=== PATIENT | male | born 1935 | race Caucasian/White ===

== ENCOUNTER 2017-11-13 14:25 | Inpatient (IN) ==
[2017-11-13 18:18] LABS: Basophils % 0.5 %; Eosinophils # 0.2 K/mcL (0.0-0.6); Eosinophils % 2.3 %; Hematocrit 39.7 % (37.5-50.1); Hemoglobin 13.2 g/dL (12.9-16.9); Immature Granulocytes % 0.4 % (0-4); Lymphocytes # 1.4 K/mcL (0.6-4.6); Lymphocytes % 17.5 %; Mean Corpuscular HGB Conc 33.2 g/dL (31.6-35.5); Mean Corpuscular Hemoglobin 28.8 pg (28.0-33.3); Mean Corpuscular Volume 86.7 fL (83.0-100.0); Mean Platelet Volume 11.1 fL (9.4-12.4); Monocytes # 1.1 K/mcL (0.0-1.3); Monocytes % 14.3 %; Neutrophils # 5.1 K/mcL (1.6-8.9); Platelet Count 169 K/mcL (140-400); Red Blood Count 4.58 M/mcL (4.19-5.50); Red Cell Distribution Width 14.3 % (11.5-14.5)
[2017-11-13 18:37] LABS: Alanine Aminotransferase 9 Units/L (7-52); Albumin 3.4 g/dL (3.5-5.7); Albumin/Globulin Ratio 1.4 (1.1-2.2); Alkaline Phosphatase 38 Units/L (34-104); Aspartate Amino Transferase 15 Units/L (13-39); BUN/Creatinine Ratio 18 (6-26); Bilirubin,Total 0.6 mg/dL (0.3-1.0); Blood Urea Nitrogen 17 mg/dL (8-23); Calcium 8.9 mg/dL (8.6-10.3); Carbon Dioxide 21 mEq/L (23-29); Chloride 109 mEq/L (98-107); Globulin 2.5 g/dL (2.4-3.5); Glucose 85 mg/dL (70-105); Osmolality,Calculated 295 (280-300); Potassium 3.6 mEq/L (3.5-5.1); Sodium 142 mEq/L (136-145); Total Protein 5.9 g/dL (6.4-8.9); eGFR For African Americans > 60 (> 60); eGFR For Non-African Americans > 60 (> 60)
[2017-11-13] MEDS: Heparin 25,000 UNIT/500 ML D5W 25,000 UNIT/500 ML BAG IVC SCH (19:00)
[2017-11-13] MEDS ORDERED: Naloxone 0.4 MG/ML INJ IVP PRN (20:07)
--- NOTE | 2017-11-13 21:02 | Internal Med History&Physical ---
<BennyguerorobertPascual kramer - Last Filed: 11/13/17 22:26> Date of Encounter: 11/13/17 Time of Encounter: 18:00 Internal Medicine - H&P: HPI Chief complaint: SOB/Dyspnea Admitted From: Intrahospital Transfer Plans for Post Hospital Care: Home History of present illness: Mr. Oconnell is a 82 year old male w/PMH of arthritis, atrial fibrillation on Coumadin, CAD, diabetes, hx of GI bleed, HLD, HTN, TIA, GERD, and hx of triple bypass presents from the ED w/CC of SOB and dyspnea for the past 2-3 days which has progressively worsened. SOB with exertion. Also reports productive cough with yellow sputum but denies nasal congestion, chest congestion. Patient states he had 3 episodes of nausea and vomiting yesterday. Reports home O2 use at 2 L. Patient denies recent illness, fever, chills, headache, changes in vision, unusual bleeding, chest pain, edema, orthopnea, abdominal pain, diarrhea , constipation, dizziness, lightheadedness, numbness, tingling, pre-syncope, or syncope. Past Med Surg Social Fam HX - Past Medical History Source: patient Medical history: arthritis, atrial fibrillation, coronary artery disease, diabetes, GI bleed, hyperlipidemia, TIA, other Additional medical history: home oxygen Psychiatric history: no psych history - Past Surgical History Surgical History: coronary bypass (CABG) (Triple), other Additional surgical history: 3 way bypass. stomach sx - Social History Smoking Status: Former smoker Packs per day: 1 PPD - Reports quitting in 1969 Smokeless Tobacco Status: No Alcohol use: none Drug use: none Current living situation: Home, With Family Activity Level: Uses cane/walker Recent Out of Country Travel Within the Last 8 Weeks: No Exposure or Possible Exposure to Illness During Travel: No - Family History Mother Race: Family Member Ethnicity: Non- Living Status: Age at : 90 Cause of : Old age Hx Family Neurologic Disorders: Yes (Alzheimer's disease) Father Adopted: No Race: Family Member Ethnicity: Non- Living Status: Age at : 62 Cause of : Cerebral hemorrhage Hx Family Cardiac Disorders: Yes (CVA) Sister Race: Family Member Ethnicity: Non- Living Status: Still Living Hx Family Cardiac Disorders: Yes (CAD) Hx Family GI Disorders: Yes (Crohn's disease) Hx Family Endocrine Disorder: Yes (DM) Internal Medicine - H&P: Meds Candesartan Cilexetil [Atacand] 32 mg PO DAILY 03/03/15 [History] Metoclopramide [Reglan] 5 mg PO BID 03/03/15 [History] Metoprolol [Lopressor] 100 mg PO BID 03/03/15 [History] Pantoprazole Sodium 40 mg PO BID 03/03/15 [History] Amlodipine [Norvasc] 10 mg PO DAILY #30 tablet 03/06/15 [Rx] Lactobacillus [Culturelle] 1 each PO BID #10 cap.sprink 04/15/15 [Rx] Warfarin [Coumadin] 3 mg PO 1800 11/13/17 [History] 3 Allergy/AdvReac Type Severity Reaction Status Date / Time No Known Allergies Allergy Verified 03/03/15 15:41 All Systems PM: A 10-system review of systems was performed and is negative for pertinent findings except as documented above in the HPI. - Constitutional Constitutional: no chills, no fever(s), no night sweats - EENT Eyes: no change in vision, no discharge, no pain, no photophobia Ears: no ear discharge, no ear pain, no tinnitus Nose, mouth and throat: no dysphagia, no nasal discharge, no neck pain, no sore throat - Breasts Breasts: as per HPI - Cardiovascular Cardiovascular ROS IM: dyspnea, dyspnea on exertion, irregular heart rhythm, no chest pain, no diaphoresis, no lightheadedness, no palpitations, no syncope - Respiratory Respiratory: as per HPI, cough, dyspnea, dyspnea on exertion, change in phlegm color (Yellow), no wheezing, no excessive phlegm production - Gastrointestinal Gastrointestinal: as per HPI, nausea, vomiting, no abdominal pain, no diarrhea, no hematemesis, no hematochezia, no melena - Genitourinary Genitourinary ROS male: as per HPI, difficulty urinating, urinary hesitancy - Musculoskeletal Musculoskeletal ROS IM: no numbness, no tingling - Integumentary Integumentary IM: no rash, no unusual bruising - Neurological Neurological ROS: no confusion, no convulsions, no focal weakness, no numbness, no tingling, no tremor(s) - Psychiatric Psychiatric: as per HPI - Endocrine Endocrine IM: as per HPI - Hematologic/Lymphatic Hematologic/Lymphatic: no easy bruising - Allergic/Immunologic Allergic/Immunologic: as per HPI - Constitutional Vitals: Temp Pulse Resp BP Pulse Ox 98.3 F 88 18 136/88 99 11/13/17 19:45 11/13/17 19:45 11/13/17 19:45 11/13/17 19:45 11/13/17 19:45 General appearance: Present: cooperative, A&O X 3, pleasant, no acute distress, answers questions appropriately - Head Head exam: Present: atraumatic, normocephalic - Eye Eye exam: Present: PERRL, conjuntiva pink, sclera anicteric Pupils: Present: PERRL - ENT ENT exam: Present: normal exam - Neck Neck exam general surgery: Present: normal inspection, supple, trachea midline. Absent: lymphadenopathy - Respiratory Respiratory exam: Present: CTAB. Absent: accessory muscle use, rales, rhonchi, wheezes - Cardiovascular Cardiovascular exam: Present: irregular rhythm - GI/Abdominal GI/Abdominal exam: Present: normal bowel sounds, soft, no peritoneal signs. Absent: distended, tenderness - Rectal Rectal exam: Present: deferred - Additional comments: exam deferred. - Extremities Exam Extremities exam: Present: warm, radial pulses palpable and symmetrical. Absent : calf tenderness, cyanotic, pedal edema - Back Exam Back exam: Present: normal inspection - Neurological Exam Neurological exam: Present: alert, CN II-XII intact, oriented X3, no focal deficits. Absent: pronater drift, facial droop, speech deficit - Psychiatric Psychiatric exam: Present: normal affect, normal mood - Skin Skin exam: Present: dry, intact Internal Med - H&P Results - Labs CBC & Chem 7: 11/13/17 18:07 11/13/17 18:07 Labs: Short CBC 11/13/17 Range/Units 18:07 WBC 7.8 (4.3-11.1) K/mcL Hgb 13.2 (12.9-16.9) g/dL Hct 39.7 (37.5-50.1) % Plt Count 169 (140-400) K/mcL Neutrophils # 5.1 (1.6-8.9) K/mcL BMP 11/13/17 18:07 Sodium 142 Potassium 3.6 Chloride 109 H Carbon Dioxide 21 L BUN 17 Creatinine 0.94 Glucose 85 Calcium 8.9 Liver Function 11/13/17 Range/Units 18:07 Total Bilirubin 0.6 (0.3-1.0) mg/dL AST 15 (13-39) Units/L ALT 9 (7-52) Units/L Alkaline Phosphatase 38 (34-104) Units/L Albumin 3.4 L (3.5-5.7) g/dL - Diagnostic Studies Chest x-ray Additional comments: EXAMINATION: SINGLE XRAY VIEW OF THE CHEST 11/13/2017 11:05 am COMPARISON: 04/13/2015 HISTORY: ORDERING SYSTEM PROVIDED HISTORY: dyspnea Initial exam. FINDINGS: No consolidation, effusion or pneumothorax. Stable cardiomediastinal silhouette. There is no evidence of pulmonary edema. XR/XR chest 1V portable IMPRESSION: No acute process. D/ / 11/13/2017 11:19:12 Sg Prater MD / riri Interpreting Provider: Sg Prater MD CT scan - chest Additional comments: EXAMINATION: CT OF THE CHEST WITH CONTRAST 11/13/2017 1:26 pm TECHNIQUE: CT of the chest was performed with the administration of intravenous contrast. Multiplanar reformatted images are provided for review. Dose modulation, iterative reconstruction, and/or weight based adjustment of the mA/kV was utilized to reduce the radiation dose to as low as reasonably achievable. COMPARISON: 04/27/2013 HISTORY: ORDERING SYSTEM PROVIDED HISTORY: SOB, elevated lactic acid, nml CXR Additional signs and symptoms: SOB Relevant Medical/Surgical History: OPEN HEART 70 ml of ISOVUE 370 Initial exam. FINDINGS: Mediastinum: The heart size is normal post median sternotomy. [id number] atherosclerotic changes of the aorta and coronary vessels. There are small to borderline enlarged mediastinal lymph nodes the largest measuring up to 1.1 cm. There is no evidence of axillary lymphadenopathy. Although limited by contrast timing bolus there does appear to be segmental and subsegmental pulmonary artery embolism to the superior segment to the right lower lobe. Stable left thyroid nodule measures 9.3 mm. Lungs/pleura: The central airways are patent. The lungs are emphysematous. Ground-glass density appearing nodule within the right upper lobe measuring 1.2 x 0.9 cm. There are adjacent smaller foci of ground-glass density involving the posterior segment representing nonspecific inflammation or infection. Similar findings to involve the superior segment right lower lobe with additional tree-in-bud nodularity representing small airways disease. Peribronchial thickening with distal airway impactions left lower lobe. A 6 x 5 mm right upper lobe nodule image number 28 is too small to further characterize. Upper Abdomen: The upper abdomen demonstrates stable right adrenal nodule suggesting adrenal adenoma given long-term stability. Soft Tissues/Bones: No suspicious lytic or blastic osseous lesion. CT/CT chest w con IMPRESSION: 1. Segmental and subsegmental pulmonary artery emboli superior segment right lower lobe. 2. Nonspecific ground-glass densities within the right upper and right lower lobes likely as a result of postinfectious or inflammatory origin. Recommend three month follow-up to assure stability or resolution. 3. COPD with left lower lobe bronchiectasis and distal airway impactions. This is likely mucoid in nature. 4. Indeterminate right upper lobe nodule 6 x 5 mm. Refer to Fleischner criteria follow-up. Findings were discussed with Joana Soares 1:33 p.m. 11/13/2017. RECOMMENDATIONS: Fleischner Society guidelines for follow-up and management of incidentally detected pulmonary nodules: Single Solid Nodule: Nodule size equals 6-8 mm In a low-risk patient, CT at 6-12 months, then consider CT at 18-24 months. In a high-risk patient, CT at 6-12 months, then CT at 18-24 months. - Low risk patients include individuals with minimal or absent history of smoking and other known risk factors. - High risk patients include individuals with a history or smoking or known risk factors. Radiology 2017 http://pubs.rsna.org/doi/full/10.1148/radiol.[email or web address] D/ / 11/13/2017 13:41:34 Sg Prater MD / [email or web address] Interpreting Provider: Sg Prater MD - Assessment and plan (1) Pulmonary embolism Current Visit: Yes Status: Acute Assessment and plan: Acute PEs. Pt. reports SOB/dyspnea for the past 2-3 days which has worsened. Also reports cough w/yellow sputum. O2 dependent at home. Currently on Coumadin. INR 2.3 today. Hx of TIA but pt. denies hx of PE/DVT. CT of the chest today shows segmental and subsegmental pulmonary artery emboli superior segment right lower lobe. Pt. started on heparin drip at [facility] which will be continued. Hold Coumadin. Echocardiogram. Cardiology consult ordered w/follow- up needed in a.m. Oncology Hematology consult ordered and discussed w/Dr. Dangelo and I appreciate the consult. Continuous cardiac telemetry. Supplemental O2 w/ titration and SpO2 monitoring. Xopenex IH. Mucinex for cough. Pt. discussed w/ Dr. Koch who agrees w/plan of care. Pt. is high risk for further morbidity and demise d/t current PEs on Coumadin, heparin drip requiring monitoring, hx; and risk factors of atrial fibrillation, CAD with previous triple bypass, diabetes, HLD, HTN, and previous TIA. Inpatient. Qualifiers: Pulmonary embolism type: other Chronicity: acute Acute cor pulmonale presence: without acute cor pulmonale Qualified Code(s): I26.99 - Other pulmonary embolism without acute cor pulmonale (2) SOB (shortness of breath) Current Visit: Yes Status: Acute Assessment and plan: Acute SOB and dyspnea for the past 2-3 days that has worsened. Pt. O2-dependent @ home. Supplemental O2 w/titration and SpO2 monitoring. Xopenex IH. Mucinex for cough. (3) Atrial fibrillation Current Visit: Yes Status: Acute Assessment and plan: Acute on chronic atrial fibrillation. Pt. takes Coumadin daily. Continuous cardiac telemetry. Will hold Coumadin d/t pt. being on heparin drip for PEs. Cardiology consult ordered. Qualifiers: Atrial fibrillation type: chronic Qualified Code(s): I48.2 - Chronic atrial fibrillation (4) Cough Current Visit: Yes Status: Acute Assessment and plan: Acute cough w/yellow sputum. Mucinex ordered PRN. (5) CAD (coronary artery disease) Current Visit: Yes Status: Chronic Assessment and plan: Hx of chronic CAD w/hx of triple bypass. Pt. also has hx of HTN, HLD, atrial fibrillation, CAD, and TIA. Continuous cardiac telemetry. Lipid panel in a.m. labs. Continue patient's Lopressor, candesartan, and Norvasc. Echocardiogram dated 01/05/17 showed LVEF of 50-55%, indeterminate left ventricular diastolic function, normal right ventricular size (function is probably normal), mild to moderate mitral regurgitation, mild tricuspid regurgitation, and mild pulmonary hypertension by TR gradient. IVC was not well visualized. Echocardiogram ordered. Qualifiers: Coronary Disease-Associated Artery/Lesion type: [place] artery [place] vs. transplanted heart: [place] heart Associated angina: angina presence unspecified Qualified Code(s): I25.10 - Atherosclerotic heart disease of [place] coronary artery without angina pectoris (6) Diabetes Current Visit: Yes Status: Chronic Assessment and plan: Hx of chronic diabetes. Pt. and family state that pt. used to take Metformin but was taken off d/t good control. Add low-dose correction insulin sliding scale with hypoglycemic protocol. BG checks before meals at bedtime. A1c in a.m. labs. Qualifiers: Diabetes mellitus type: type 1 Diabetes mellitus complication status: with unspecified complications Qualified Code(s): E10.8 - Type 1 diabetes mellitus with unspecified complications (7) HLD (hyperlipidemia) Current Visit: Yes Status: Chronic Assessment and plan: Hx of chronic HLD. Lipid panel in a.m. labs. Pt. does not currently take statin. Consider adding Lipitor to home medications based on lipid panel results. Qualifiers: Hyperlipidemia type: pure hypercholesterolemia Qualified Code(s): E78.00 - Pure hypercholesterolemia, unspecified; E78.0 - Pure hypercholesterolemia (8) HTN (hypertension) Current Visit: Yes Status: Chronic Assessment and plan: Hx of chronic HTN. Monitor pt. and VS. Continue pts. Lopressor, candesartan, and Norvasc. Qualifiers: Hypertension type: essential hypertension Qualified Code(s): I10 - Essential (primary) hypertension (9) DVT prophylaxis Current Visit: Yes Status: Acute Assessment and plan: Pt. placed on heparin drip for current PEs. Hold Coumadin. Monitor pt. for signs of bleeding d/t hx of GI bleed. - Time Spent With Patient Total time spent is greater than 50% in coordination of care (as documented) at patient's floor/unit and/or counseling patient: Greater than 35 minutes <Judi Koch - Last Filed: 11/14/17 15:41> Date of Encounter: 11/13/17 Internal Medicine - H&P: HPI History of present illness: Mr. Oconnell is a 82 year old male All Systems PM: A 10-system review of systems was performed and is negative for pertinent findings except as documented above in the HPI. - Constitutional Vitals: Temp Pulse Resp BP Pulse Ox 97.8 F 71 18 113/54 98 11/14/17 14:51 11/14/17 14:51 11/14/17 14:51 11/14/17 14:51 11/14/17 14:51 Internal Med - H&P Results - Labs CBC & Chem 7: 11/14/17 06:12 11/14/17 06:12 Labs: Short CBC 11/13/17 11/14/17 Range/Units 18:07 06:12 WBC 7.8 5.5 (4.3-11.1) K/mcL Hgb 13.2 11.4 L D (12.9-16.9) g/dL Hct 39.7 35.0 L (37.5-50.1) % Plt Count 169 158 (140-400) K/mcL Neutrophils # 5.1 2.3 (1.6-8.9) K/mcL BMP 11/13/17 11/14/17 18:07 06:12 Sodium 142 141 Potassium 3.6 3.6 Chloride 109 H 112 H Carbon Dioxide 21 L 24 BUN 17 15 Creatinine 0.94 0.90 Glucose 85 83 Calcium 8.9 8.2 L Liver Function 11/13/17 11/14/17 Range/Units 18:07 06:12 Total Bilirubin 0.6 0.4 (0.3-1.0) mg/dL AST 15 13 (13-39) Units/L ALT 9 10 (7-52) Units/L Alkaline Phosphatase 38 33 L (34-104) Units/L Albumin 3.4 L 2.9 L (3.5-5.7) g/dL - Impressions ITS Impressions Echocardiogram 11/13/17 22:04 Impressions: LVEF 50%. Indeterminate diastolic function. Atypical septal motion consistent with post-operative status. Basal septal hypertrophy. No LVOT obstruction. RV size is probably dilated. Function is mildly reduced by Doppler. Bi-atrial enlargement. Mild mitral regurgitation. No pulmonary hypertension by TR gradient. IVC not well visualized to estimate RVSP. Left Ventricular Wall Motion: Rest Echo Findings The basal inferior wall was hypokinetic. All other wall segments showed normal motion. Findings: Study Quality * Technically adequate exam. ECG Findings * Atrial fibrillation. Left Ventricle * LVEF 50%. * Indeterminate diastolic function. * Atypical septal motion consistent with post-operative status. * Normal LV chamber size. * Basal septal hypertrophy. No LVOT obstruction. Right Ventricle * RV size is probably dilated. Function is mildly reduced by Doppler. Left Atrium * Severely dilated left atrium. Right Atrium * Moderately dilated right atrium. Mitral Valve * Normal mitral valve structure. * No mitral stenosis. * Mild mitral annular calcification * Mild mitral regurgitation. Aortic Valve * No aortic regurgitation. * Trileaflet aortic valve. * No aortic stenosis. Tricuspid Valve * Tricuspid valve not well visualized. * Trace tricuspid regurgitation. Pulmonic Valve * Pulmonic valve is not well visualized. * No pulmonic stenosis. * No pulmonic regurgitation. Pulmonary Artery * Pulmonary artery not well visualized. Aorta * Normally sized aortic root. * Ascending aorta not well visualized. Pericardium * There is no pericardial effusion present. Interatrial Septum * No evidence of PFO by color Doppler. IVC * The IVC is not well evaluated. - Attending Attestation I personally and independently interviewed and examined the patient with SUPERVISOR [employer] , and I reviewed the patient's medical records. I am in agreement with the assessment and proposed treatment plan. I discussed my findings and recommendation with the patient and answer all questions. The patient's medical records were edited to accurately reflect this encounter. - Assessment and plan (1) Pulmonary embolism Current Visit: Yes Status: Inactive Qualifiers: Pulmonary embolism type: other Chronicity: acute Acute cor pulmonale presence: without acute cor pulmonale Qualified Code(s): I26.99 - Other pulmonary embolism without acute cor pulmonale (2) Atrial fibrillation Current Visit: Yes Status: Chronic Qualifiers: Atrial fibrillation type: chronic Qualified Code(s): I48.2 - Chronic atrial fibrillation (3) CAD (coronary artery disease) Current Visit: Yes Status: Chronic Qualifiers: Coronary Disease-Associated Artery/Lesion type: [place] artery [place] vs. transplanted heart: [place] heart Associated angina: angina presence unspecified Qualified Code(s): I25.10 - Atherosclerotic heart disease of [place] coronary artery without angina pectoris (4) Diabetes Current Visit: Yes Status: Chronic Qualifiers: Diabetes mellitus type: type 1 Diabetes mellitus complication status: with unspecified complications Qualified Code(s): E10.8 - Type 1 diabetes mellitus with unspecified complications (5) HLD (hyperlipidemia) Current Visit: Yes Status: Chronic Qualifiers: Hyperlipidemia type: pure hypercholesterolemia Qualified Code(s): E78.00 - Pure hypercholesterolemia, unspecified; E78.0 - Pure hypercholesterolemia (6) HTN (hypertension) Current Visit: Yes Status: Chronic Qualifiers: Hypertension type: essential hypertension Qualified Code(s): I10 - Essential (primary) hypertension (7) DVT prophylaxis Current Visit: Yes Status: Acute (8) Acute respiratory failure with hypoxia Current Visit: Yes Status: Acute (9) Acute on chronic respiratory failure with hypoxia Current Visit: Yes Status: Acute - Time Spent With Patient Total time spent is greater than 50% in coordination of care (as documented) at patient's floor/unit and/or counseling patient:
[2017-11-13] MEDS ORDERED: Dextrose Gel 15 GM/37.5 ML TUBE PO PRN ×2 (22:00)
[2017-11-13] MEDS ORDERED: *HR* Dextrose 50 % in Water (Syg) 50 ML SYRINGE IVP PRN (22:00)
[2017-11-13 22:58] LABS: Activated Partial Thrombo Time 140.6 Seconds (26.0-36.0)
[2017-11-13 23:11] LABS: Heparin anti-factor XA UFH 0.45 IU/mL (0.30-0.70)
[2017-11-14] MEDS ORDERED: Acetaminophen 325 MG TABLET PO PRN (00:53)
[2017-11-14] MEDS ORDERED: D5% in Water 1,000 ML IVC PRN (00:55)
[2017-11-14] MEDS: Insulin LISPRO 300 UNITS/3 ML VIAL SQ SCH ×4 (01:03→17:11)
[2017-11-14] MEDS: amLODIPine 5 MG TABLET PO SCH ×2 (01:03→09:42)
[2017-11-14] MEDS: Metoprolol 100 MG TABLET PO SCH ×3 (01:03→22:23)
[2017-11-14] MEDS: *HR* HYDROcodone/Acet 5/325 mg TABLET PO PRN ×2 (01:07→22:24)
[2017-11-14] MEDS: Levalbuterol Neb 1.25 MG/3 ML IH SCH ×5 (03:27→22:48)
[2017-11-14 06:26] LABS: Basophils % 0.5 %; Eosinophils # 0.5 K/mcL (0.0-0.6); Eosinophils % 9.7 %; Immature Granulocytes % 0.2 % (0-4); Lymphocytes # 1.7 K/mcL (0.6-4.6); Lymphocytes % 31.1 %; Mean Corpuscular HGB Conc 32.6 g/dL (31.6-35.5); Mean Corpuscular Hemoglobin 28.3 pg (28.0-33.3); Mean Corpuscular Volume 86.8 fL (83.0-100.0); Monocytes # 0.9 K/mcL (0.0-1.3); Monocytes % 16.2 %; Neutrophils # 2.3 K/mcL (1.6-8.9); Platelet Count 158 K/mcL (140-400); Red Blood Count 4.03 M/mcL (4.19-5.50); Red Cell Distribution Width 14.6 % (11.5-14.5); Segmented Neutrophils % 42.3 %
[2017-11-14 06:33] LABS: Hemoglobin 11.4 g/dL (12.9-16.9)
[2017-11-14 06:47] LABS: Estimated Average Glucose 105 mg/dl; Hemoglobin A1C 5.3 %
[2017-11-14 06:49] LABS: Alanine Aminotransferase 10 Units/L (7-52); Albumin 2.9 g/dL (3.5-5.7); Albumin/Globulin Ratio 1.3 (1.1-2.2); Alkaline Phosphatase 33 Units/L (34-104); Aspartate Amino Transferase 13 Units/L (13-39); BUN/Creatinine Ratio 17 (6-26); Bilirubin,Total 0.4 mg/dL (0.3-1.0); Blood Urea Nitrogen 15 mg/dL (8-23); Calcium 8.2 mg/dL (8.6-10.3); Carbon Dioxide 24 mEq/L (23-29); Chloride 112 mEq/L (98-107); Chol/HDL Ratio 2.6 (0-4.9); Cholesterol 65 mg/dL (< 200); Globulin 2.3 g/dL (2.4-3.5); Glucose 83 mg/dL (70-105); HDL Cholesterol 25 mg/dL (40-59); LDL Cholesterol,Calculated 28 mg/dL (0-99); Magnesium 1.8 mg/dL (1.6-2.6); Osmolality,Calculated 292 (280-300); Potassium 3.6 mEq/L (3.5-5.1); Sodium 141 mEq/L (136-145); Total Protein 5.2 g/dL (6.4-8.9); Triglycerides 59 mg/dL (< 150); eGFR For African Americans > 60 (> 60); eGFR For Non-African Americans > 60 (> 60)
--- NOTE | 2017-11-14 08:12 | Internal Med Progress Note ---
Date of Encounter: 11/14/17 Time of Encounter: 11:00 - Assessment and plan (1) Pulmonary embolism Current Visit: Yes Status: Inactive Assessment and plan: Patient found to have pulmonary embolism on oral anticoagulation with Coumadin for atrial fibrillation Patient currently on heparin drip Will consult hematology oncology for recommendations for anticoagulation Qualifiers: Pulmonary embolism type: other Chronicity: acute Acute cor pulmonale presence: without acute cor pulmonale Qualified Code(s): I26.99 - Other pulmonary embolism without acute cor pulmonale (2) Acute respiratory failure with hypoxia Current Visit: Yes Status: Acute Assessment and plan: Resolved; continue to monitor (3) Atrial fibrillation Current Visit: Yes Status: Chronic Assessment and plan: Rate controlled; cardiology and hematology oncology consulted for recommendations for oral anticoagulation. Qualifiers: Atrial fibrillation type: chronic Qualified Code(s): I48.2 - Chronic atrial fibrillation (4) CAD (coronary artery disease) Current Visit: Yes Status: Chronic Assessment and plan: Continue home medications Qualifiers: Coronary Disease-Associated Artery/Lesion type: [place] artery [place] vs. transplanted heart: [place] heart Associated angina: angina presence unspecified Qualified Code(s): I25.10 - Atherosclerotic heart disease of [place] coronary artery without angina pectoris (5) HTN (hypertension) Current Visit: Yes Status: Chronic Assessment and plan: Hx of chronic HTN. Monitor pt. and VS. Continue pts. Lopressor, candesartan, and Norvasc. Qualifiers: Hypertension type: essential hypertension Qualified Code(s): I10 - Essential (primary) hypertension (6) Diabetes Current Visit: Yes Status: Chronic Assessment and plan: Continue home medications Qualifiers: Diabetes mellitus type: type 1 Diabetes mellitus complication status: with unspecified complications Qualified Code(s): E10.8 - Type 1 diabetes mellitus with unspecified complications (7) HLD (hyperlipidemia) Current Visit: Yes Status: Chronic Assessment and plan: Continue home medications Qualifiers: Hyperlipidemia type: pure hypercholesterolemia Qualified Code(s): E78.00 - Pure hypercholesterolemia, unspecified; E78.0 - Pure hypercholesterolemia (8) DVT prophylaxis Current Visit: Yes Status: Acute Assessment and plan: Continue heparin drip - Time Spent With Patient Total time spent is greater than 50% in coordination of care (as documented) at patient's floor/unit and/or counseling patient: - Subjective Interval history: Patient who presented with shortness of breath and found to have pulmonary embolism on baseline O2 requirements this morning. - Constitutional Vitals: Temp Pulse Resp BP Pulse Ox 97.6 F 79 18 116/64 98 11/14/17 07:28 11/14/17 07:28 11/14/17 07:28 11/14/17 07:28 11/14/17 07:28 General appearance: Present: cooperative, A&O X 3, pleasant, no acute distress, answers questions appropriately - Respiratory Respiratory exam: Present: CTAB. Absent: accessory muscle use, rales, rhonchi, wheezes - Cardiovascular Cardiovascular exam: Present: RRR, +S1, +S2. Absent: diastolic murmur, gallop, rubs, systolic murmur Internal Medicine: Result - Labs CBC & Chem 7: 11/14/17 06:12 11/14/17 06:12 Labs: Short CBC 11/13/17 11/14/17 Range/Units 18:07 06:12 WBC 7.8 5.5 (4.3-11.1) K/mcL Hgb 13.2 11.4 L D (12.9-16.9) g/dL Hct 39.7 35.0 L (37.5-50.1) % Plt Count 169 158 (140-400) K/mcL Neutrophils # 5.1 2.3 (1.6-8.9) K/mcL BMP 11/13/17 11/14/17 18:07 06:12 Sodium 142 141 Potassium 3.6 3.6 Chloride 109 H 112 H Carbon Dioxide 21 L 24 BUN 17 15 Creatinine 0.94 0.90 Glucose 85 83 Calcium 8.9 8.2 L Liver Function 11/13/17 11/14/17 Range/Units 18:07 06:12 Total Bilirubin 0.6 0.4 (0.3-1.0) mg/dL AST 15 13 (13-39) Units/L ALT 9 10 (7-52) Units/L Alkaline Phosphatase 38 33 L (34-104) Units/L Albumin 3.4 L 2.9 L (3.5-5.7) g/dL Consult Discharge Plan - Plan Referrals: Geraldo Das, DO [Primary Care Provider] -
--- NOTE | 2017-11-14 08:17 | Oncology Inp Consult Note ---
Date of Encounter: 11/14/17 Time of Encounter: 08:00 Assessment and Plan (1) Thrombosis Status: Chronic Assessment and plan: Patient with history of atrial fibrillation was on Coumadin, with? prior hx of episode of aphasia/TIA, no prior history of deep venous thrombosis, pulmonary embolism in the right lung ?acute versus chronic patient has been well maintained and set with Coumadin- has been monitoring INR at home with a targeted range around 2 His shortness of breath likely multifactorial, due to worsening consider switching anticoagulation to eliquis if agreed by cardiology. He had GI bleeding in the past and was noted in scope to have gastric ulcers and pradaxa was d/juan ramon then. He currently denies any Gi symptoms. Monitor Hgb/Hct closely, consult GI if there is any concern Plan of care d/w patient regarding out patient management of recurrent thrombotic episodes. - Data of Consult Requesting Physician: Shayne Crain Primary Care Provider: Geraldo Das, DO - Consult Narrative Reason for consult: PE History of present illness: Mr. Oconnell is a 82 year old male with medical history significant for coronary artery disease, hypertension, status post CABG, type is mellitus, chronic atrial fibrillation was on anti-coag ablation with Coumadin, was on Pradaxa previously due to gastric ulcer and bleeding that was discontinued per report. He had gastric ulcers several years ago had undergone abdominal surgeries in the past. Patient had a colonoscopy endoscopy in [facility] 2014 and for gastroenterology report these were negative. Patient was restarted on Coumadin as he had a neurologic event with expressive aphasia Patient has been on Coumadin and reports that he is compliant with that does home monitoring 17 week and INR has been around 2. A CT scan of the chest was done due to shortness of breath that shows the segmental and subsegmental pulmonary artery emboli in the right lower lobe, inflammation 3 changes in pulmonary nodule. Hematology consulted for anticoagulation, due to thrombotic episodes on Coumadin. Colonoscopy: 06/2014 - negative - [facility] EGD: 06/2014 - negative - [facility], per prior hospitalization records Hgb/Hct stable >11gm Patient remains on oxygen, he denies any chest discomfort, he has shortness of breath with minimal exertion He has not noticed any bleeding with his bowel movements or black stools. Denied abdominal pain Past Med Surg Social Fam HX - Past Medical History Medical history: arthritis, atrial fibrillation, coronary artery disease, diabetes, GI bleed, hyperlipidemia, TIA, other Additional medical history: home oxygen Psychiatric history: no psych history - Past Surgical History Surgical History: coronary bypass (CABG) (Triple), other Additional surgical history: 3 way bypass. stomach sx - Social History Smoking Status: Former smoker Packs per day: 1 PPD - Reports quitting in 1969 Smokeless Tobacco Status: No Alcohol use: none Drug use: none - Family History Mother Race: Family Member Ethnicity: Non- Living Status: Age at : 90 Cause of : Old age Hx Family Cardiac Disorders: Yes Hx Family Neurologic Disorders: Yes (Alzheimer's disease) Father Adopted: No Race: Family Member Ethnicity: Non- Living Status: Age at : 62 Cause of : Cerebral hemorrhage Hx Family Cardiac Disorders: Yes (CVA) Hx Family Neurologic Disorders: No Sister Race: Family Member Ethnicity: Non- Living Status: Still Living Hx Family Cardiac Disorders: Yes (CAD) Hx Family GI Disorders: Yes (Crohn's disease) Hx Family Endocrine Disorder: Yes (DM) Medications and Allergies Candesartan Cilexetil [Atacand] 32 mg PO DAILY 03/03/15 [History] Metoclopramide [Reglan] 5 mg PO BID 03/03/15 [History] Metoprolol [Lopressor] 100 mg PO BID 03/03/15 [History] Pantoprazole Sodium 40 mg PO BID 03/03/15 [History] Amlodipine [Norvasc] 10 mg PO DAILY #30 tablet 03/06/15 [Rx] Lactobacillus [Culturelle] 1 each PO BID #10 cap.sprink 04/15/15 [Rx] Warfarin [Coumadin] 3 mg PO 1800 11/13/17 [History] 3 Allergy/AdvReac Type Severity Reaction Status Date / Time No Known Allergies Allergy Verified 03/03/15 15:41 Review of systems: as in HPI Oncology - Exam - Constitutional Vitals: Temp Pulse Resp BP Pulse Ox 97.6 F 79 18 116/64 98 11/14/17 07:28 11/14/17 07:28 11/14/17 07:28 11/14/17 07:28 11/14/17 07:28 General appearance: mild distress - Head Head exam: Present: atraumatic - Eye Eye exam: Present: sclera anicteric - ENT ENT exam: Present: mucous membranes moist - Neck Neck exam: Present: full ROM - Respiratory Respiratory exam: Present: CTAB - Cardiovascular Cardiovascular exam: Present: irregular rhythm, +S1, +S2 - GI/Abdominal GI/Abdominal exam: Present: normal bowel sounds, soft - Extremities Exam Extremities exam: Present: normal inspection Oncology - Results Labs: 3 11/14/17 11/14/17 11/14/17 06:12 06:12 06:12 WBC RBC Hgb Hct MCV MCH MCHC RDW Plt Count MPV Immature Gran % Seg Neutrophils % Lymphocytes % Monocytes % Eosinophils % Basophils % Neutrophils # Lymphocytes # Monocytes # Eosinophils # Basophils # APTT 80.3 H Heparin Anti-Xa, Unfract Sodium Potassium Chloride Carbon Dioxide BUN Creatinine Est GFR ( Amer) Est GFR (Non-Af Amer) BUN/Creatinine Ratio Glucose POC Glucose Est Mean Plasma Glucose 105 Hemoglobin A1c 5.3 Calculated Osmolality Lactic Acid 0.9 Calcium Magnesium Total Bilirubin AST ALT Alkaline Phosphatase Serum Total Protein Albumin Globulin Albumin/Globulin Ratio Triglycerides Cholesterol LDL Cholesterol, Calc VLDL Cholesterol, Calc HDL Cholesterol Cholesterol/HDL Ratio 3 11/14/17 11/14/17 11/13/17 06:12 06:12 22:17 WBC 5.5 RBC 4.03 L Hgb 11.4 L D Hct 35.0 L MCV 86.8 MCH 28.3 MCHC 32.6 RDW 14.6 H Plt Count 158 MPV 11.0 Immature Gran % 0.2 Seg Neutrophils % 42.3 Lymphocytes % 31.1 Monocytes % 16.2 Eosinophils % 9.7 Basophils % 0.5 Neutrophils # 2.3 Lymphocytes # 1.7 Monocytes # 0.9 Eosinophils # 0.5 Basophils # 0.0 APTT 140.6 H* Heparin Anti-Xa, Unfract 0.45 Sodium 141 Potassium 3.6 Chloride 112 H Carbon Dioxide 24 BUN 15 Creatinine 0.90 Est GFR ( Amer) > 60 Est GFR (Non-Af Amer) > 60 BUN/Creatinine Ratio 17 Glucose 83 POC Glucose Est Mean Plasma Glucose Hemoglobin A1c Calculated Osmolality 292 Lactic Acid Calcium 8.2 L Magnesium 1.8 Total Bilirubin 0.4 AST 13 ALT 10 Alkaline Phosphatase 33 L Serum Total Protein 5.2 L Albumin 2.9 L Globulin 2.3 L Albumin/Globulin Ratio 1.3 Triglycerides 59 Cholesterol 65 LDL Cholesterol, Calc 28 VLDL Cholesterol, Calc 12 HDL Cholesterol 25 L Cholesterol/HDL Ratio 2.6 3 11/13/17 11/13/17 11/13/17 20:20 18:07 18:07 WBC 7.8 RBC 4.58 Hgb 13.2 Hct 39.7 MCV 86.7 MCH 28.8 MCHC 33.2 RDW 14.3 Plt Count 169 MPV 11.1 Immature Gran % 0.4 Seg Neutrophils % 65.0 Lymphocytes % 17.5 Monocytes % 14.3 Eosinophils % 2.3 Basophils % 0.5 Neutrophils # 5.1 Lymphocytes # 1.4 Monocytes # 1.1 Eosinophils # 0.2 Basophils # 0.0 APTT Heparin Anti-Xa, Unfract Sodium 142 Potassium 3.6 Chloride 109 H Carbon Dioxide 21 L BUN 17 Creatinine 0.94 Est GFR ( Amer) > 60 Est GFR (Non-Af Amer) > 60 BUN/Creatinine Ratio 18 Glucose 85 POC Glucose 93 Est Mean Plasma Glucose Hemoglobin A1c Calculated Osmolality 295 Lactic Acid Calcium 8.9 Magnesium Total Bilirubin 0.6 AST 15 ALT 9 Alkaline Phosphatase 38 Serum Total Protein 5.9 L Albumin 3.4 L Globulin 2.5 Albumin/Globulin Ratio 1.4 Triglycerides Cholesterol LDL Cholesterol, Calc VLDL Cholesterol, Calc HDL Cholesterol Cholesterol/HDL Ratio Consult Discharge Plan - Plan Referrals: Geraldo Das DO [Primary Care Provider] -
[2017-11-14] MEDS: Lactobacillus 1 EACH CAP.SPRINK PO SCH ×2 (09:42→22:23)
--- NOTE | 2017-11-14 11:08 | Cardiology Consult Note ---
<Kathe Ocasio - Last Filed: 11/14/17 11:26> Date of Encounter: 11/14/17 Time of Encounter: 08:30 Assessment and Plan (1) Pulmonary embolism Current Visit: Yes Status: Acute Per cardiology: -Admitted with increased shortness of breath. -Acute PE noted. -ON heparin drip. -Management per primary service. Qualifiers: Pulmonary embolism type: other Chronicity: unspecified Acute cor pulmonale presence: without acute cor pulmonale Qualified Code(s): I26.99 - Other pulmonary embolism without acute cor pulmonale (2) Atrial fibrillation Current Visit: Yes Status: Chronic Per cardiology: -Known chronic a.fib, follows with . -Currently rate controlled with BB. -Telemetry reviewed with intermittent estela with aberrency noted, reviewed with . -ON coumadin for anticoagulation, INR was 2.3 (therapeutic) on admission. -Now with acute PE. -TTE pending. -TTE 12/2016 with LVEF 50-55%, mild-mod MR, mild TR, mild PH, no segmental wall motion abnormalities noted. -Agree with switching anticoagulation in the setting of acute PE while therapuetic on coumadin. Oncology note reviewed with recs for eliquis. Discussed with , ok with rocky. Qualifiers: Atrial fibrillation type: chronic Qualified Code(s): I48.2 - Chronic atrial fibrillation Discussion w patient/family: The assessment and plan as outlined above was discussed with the patient who expressed understanding and agreement. All questions were answered. Thank you for involving us in the care of your patient. Please call with any questions. Discussed and reviewed with . History of Present Illness Consult date: 11/13/17 Requesting physician: Pascual Estes Consult reason: a.fib, PE Chief complaint: shortness of breath History of present illness: Mr. Oconnell is a 82 year old male with a relevant past medical history of [place], CAD s/p CABG 2001, atrial fibrillation, GI bleed, DM, HTN who presented for increased shortness of breath. Patient denies chest pain. Denies palpitations or fluttering. Denies active bleeding or blood loss. Patient states his primary reproductive healthcare assistant is . Past Med Surg Social Fam HX - Past Medical History Attestation: Yes The following information was validated with the patient. Source: patient, old records reviewed Medical history: arthritis, atrial fibrillation, coronary artery disease, diabetes, GI bleed, hyperlipidemia, TIA, other Additional medical history: home oxygen Psychiatric history: no psych history - Past Surgical History Surgical History: coronary bypass (CABG) (Triple), other Additional surgical history: 3 way bypass. stomach sx - Social History Smoking Status: Former smoker Packs per day: 1 PPD - Reports quitting in 1969 Smokeless Tobacco Status: No Alcohol use: none Drug use: none - Family History Mother Race: Family Member Ethnicity: Non- Living Status: Age at : 90 Cause of : Old age Hx Family Cardiac Disorders: Yes Hx Family Neurologic Disorders: Yes (Alzheimer's disease) Father Adopted: No Race: Family Member Ethnicity: Non- Living Status: Age at : 62 Cause of : Cerebral hemorrhage Hx Family Cardiac Disorders: Yes (CVA) Hx Family Neurologic Disorders: No Sister Race: Family Member Ethnicity: Non- Living Status: Still Living Hx Family Cardiac Disorders: Yes (CAD) Hx Family GI Disorders: Yes (Crohn's disease) Hx Family Endocrine Disorder: Yes (DM) Medications and Allergies Candesartan Cilexetil [Atacand] 32 mg PO DAILY 03/03/15 [History] Metoclopramide [Reglan] 5 mg PO BID 03/03/15 [History] Metoprolol [Lopressor] 100 mg PO BID 03/03/15 [History] Pantoprazole Sodium 40 mg PO BID 03/03/15 [History] Amlodipine [Norvasc] 10 mg PO DAILY #30 tablet 03/06/15 [Rx] Lactobacillus [Culturelle] 1 each PO BID #10 cap.sprink 04/15/15 [Rx] Warfarin [Coumadin] 3 mg PO 1800 11/13/17 [History] 3 Allergy/AdvReac Type Severity Reaction Status Date / Time No Known Allergies Allergy Verified 03/03/15 15:41 All Systems Review: The remainder of the systems were reviewed and are negative - Cardiovascular Cardiovascular: as per HPI, dyspnea at rest, dyspnea on exertion Physical Examination Vital Signs, Last 4 Hours Temp Pulse Resp BP Pulse Ox 11/14/17 10:59 97.8 F 80 18 115/65 100 11/14/17 10:15 18 98 11/14/17 07:28 97.6 F 79 18 116/64 98 General: Conversant, No Apparent Distress HEENT: Atraumatic, Normocephaly, Mucus Membranes Moist Neck: No JVD, Normal carotid pulses Cardiac: Normal S1 and S2, No Murmur, Other (Irregularly irregular ) Lungs: Normal Breath Sounds, No Wheeze, Rales, Rhonchi Neuro: Alert and responsive, No focal deficits noted Abdomen: Soft, Non-Tender Skin: No rashes noted on visualized skin Musculoskeletal: No Chest Wall Tenderness Extremities: No Clubbing, No Cyanosis, No Edema, Normal Pulses Results 11/14/17 06:12 11/14/17 06:12 Lab Results Active Medications Acetaminophen (Tylenol) 650 mg PO Q6HR PRN PRN Reason: Mild Pain/Fever Stop: 05/16/18 00:54 Hydrocodone Bitart/Acetaminophen ([place] 5-325 Mg) 1 tab PO Q6HR PRN PRN Reason: Moderate Pain Stop: 05/16/18 00:54 Last Admin: 11/14/17 01:07 Dose: 1 tab Amlodipine Besylate (Norvasc) 10 mg PO DAILY SHANNAN PRN Reason: Protocol Stop: 05/16/18 01:01 Last Admin: 11/14/17 09:42 Dose: 10 mg Dextrose/Water (Dextrose 50% (Syg)) 25 ml IVP AD PRN PRN Reason: Hypoglycemia Stop: 05/15/18 22:01 Glucagon (Glucagen) 1 mg IM ONCE PRN PRN Reason: Hypoglycemia Stop: 05/15/18 22:01 Glucose (Gluctose) 15 gm PO ONCE PRN PRN Reason: Hypoglycemia Stop: 05/15/18 22:01 Glucose (Gluctose) 30 gm PO ONCE PRN PRN Reason: Hypoglycemia Stop: 05/15/18 22:01 Guaifenesin (Mucinex) 600 mg PO BID PRN PRN Reason: Cough Stop: 05/16/18 00:56 Dextrose (Dextrose 5%) 1,000 mls @ 100 mls/hr IVC .Q10H PRN PRN Reason: HYPOGLYCEMIA Stop: 05/16/18 00:56 Heparin Sodium/Dextrose (Heparin 25,000 Unit/500 Ml D5w) 25,000 unit in 500 mls @ 21.728 mls/hr IVC .Q23H1M SHANNAN; 14 UNIT/KG/HR PRN Reason: Protocol Stop: 05/16/18 03:31 Last Titration: 11/14/17 06:44 Dose: 11 unit/kg/hr, 17.072 mls/hr Insulin Human Lispro (Humalog) 0 units SQ TIDAC SHANNAN PRN Reason: Protocol Stop: 05/16/18 07:31 Last Admin: 11/14/17 07:43 Dose: Not Given Insulin Human Lispro (Humalog) 0 units SQ HS [facility] PRN Reason: Protocol Stop: 05/15/18 22:01 Last Admin: 11/14/17 01:03 Dose: Not Given Lactobacillus Acidophilus/Rhamnosus (Culturelle) 1 each PO BID [facility] Stop: 05/16/18 09:01 Last Admin: 11/14/17 09:42 Dose: 1 each Levalbuterol HCl (Xopenex) 1.25 mg IH [id number] [facility] Stop: 05/16/18 01:01 Last Admin: 11/14/17 10:13 Dose: 1.25 mg Losartan Potassium (Cozaar) 100 mg PO DAILY [facility] Stop: 05/16/18 02:01 Last Admin: 11/14/17 09:41 Dose: 100 mg Metoclopramide HCl (Reglan) 5 mg PO BID [facility] Stop: 05/15/18 21:01 Last Admin: 11/14/17 09:42 Dose: 5 mg Metoprolol Tartrate (Lopressor) 100 mg PO BID [facility] Stop: 05/16/18 01:01 Last Admin: 11/14/17 09:42 Dose: 100 mg Naloxone HCl (Narcan) 0.4 mg IVP Q2MIN PRN PRN Reason: SEE COMMENTS Stop: 05/15/18 20:08 Omeprazole (Prilosec) 20 mg PO BID [facility] Stop: 05/15/18 21:01 Last Admin: 11/14/17 09:42 Dose: 20 mg Laboratory Tests 11/13/17 11:10 Troponin I < 0.03 Laboratory Tests 11/13/17 11/14/17 11/14/17 18:07 06:12 06:12 Hgb 13.2 11.4 L D Potassium 3.6 Creatinine 0.90 Magnesium 1.8 - Imaging and Cardiology Chest Xray: report reviewed Echo: pending, report reviewed - EKG Interpretation EKG results cardiology: personally reviewed (ECG this admission with a.fib, poor R wave progression.), other (Telemetry reviewed with average HR previous 12 hours noted to be 79, a.fib. PVCs noted. INtermittent a.fib with abberency noted.) Consult Discharge Plan - Plan Referrals: Geraldo Das, DO [Primary Care Provider] - <Terence Gordillo - Last Filed: 11/14/17 23:34> Date of Encounter: 11/14/17 - Attending Attestation I have personally performed a face to face evaluation on this patient. I have reviewed and agree with the care plan. History and Exam by me shows CC: Shortness of breath Pt presented to ER with complaint of increased shortness of breath, sudden onset , not associated with chest pain, denies palpitations. Pt admits to hx palpitations, has hx of atrial fib, on warfarin for primary stroke risk reduction., follows with Dr. Dickey. He reports shortness of breath has improved. PMH: reviewed ROS: reviewed PE: PT seen and examined, agree with findings as document IMP: 1. Pulmonary embolism: on systemic anticoagualtion, warfarin therapuetic, will require another anticoagulant strategy, recommend Eliquis or Pradaxa, would favor Pradaxa for reversibilty. 2. Atrial fibrillation: chronic, ventricular rate controlled on warfarin, continue current beta blockade. : Assessment and Plan Discussion w patient/family: The assessment and plan as outlined above was discussed with the patient and/or family members who expressed understanding and agreement. All questions were answered. Thank you for involving us in the care of your patient. Please call with any questions. History of Present Illness History of present illness: Mr. Oconnell is a 82 year old male All Systems Review: The remainder of the systems were reviewed and are negative Results 11/14/17 06:12 11/14/17 06:12 Lab Results 11/14/17 11/14/17 11/14/17 06:12 06:12 06:12 WBC 5.5 Hgb 11.4 L D Hct 35.0 L Plt Count 158 APTT 80.3 H Sodium 141 Potassium 3.6 Chloride 112 H Carbon Dioxide 24 BUN 15 Creatinine 0.90 Glucose 83 Calcium 8.2 L Magnesium 1.8 Total Bilirubin 0.4 AST 13 ALT 10 Alkaline Phosphatase 33 L 11/14/17 13:15 WBC Hgb Hct Plt Count APTT 63.8 H Sodium Potassium Chloride Carbon Dioxide BUN Creatinine Glucose Calcium Magnesium Total Bilirubin AST ALT Alkaline Phosphatase
[2017-11-14] MEDS: Heparin 25,000 UNIT/500 ML D5W 25,000 UNIT/500 ML BAG IVC SCH (16:29)
[2017-11-15] MEDS: Insulin LISPRO 300 UNITS/3 ML VIAL SQ SCH ×4 (01:55→17:40)
[2017-11-15] MEDS: Levalbuterol Neb 1.25 MG/3 ML IH SCH ×3 (04:33→15:49)
[2017-11-15 04:43] LABS: Basophils % 0.8 %; Eosinophils # 0.4 K/mcL (0.0-0.6); Eosinophils % 7.6 %; Hematocrit 33.5 % (37.5-50.1); Hemoglobin 10.9 g/dL (12.9-16.9); Immature Granulocytes % 0.4 % (0-4); Lymphocytes # 1.4 K/mcL (0.6-4.6); Lymphocytes % 27.6 %; Mean Corpuscular HGB Conc 32.5 g/dL (31.6-35.5); Mean Corpuscular Hemoglobin 28.2 pg (28.0-33.3); Mean Corpuscular Volume 86.8 fL (83.0-100.0); Mean Platelet Volume 11.2 fL (9.4-12.4); Monocytes # 0.8 K/mcL (0.0-1.3); Monocytes % 15.7 %; Neutrophils # 2.4 K/mcL (1.6-8.9); Platelet Count 158 K/mcL (140-400); Red Blood Count 3.86 M/mcL (4.19-5.50); Red Cell Distribution Width 14.5 % (11.5-14.5); Segmented Neutrophils % 47.9 %
[2017-11-15 05:03] LABS: Alanine Aminotransferase 8 Units/L (7-52); Albumin 2.8 g/dL (3.5-5.7); Albumin/Globulin Ratio 1.3 (1.1-2.2); Alkaline Phosphatase 34 Units/L (34-104); Aspartate Amino Transferase 13 Units/L (13-39); BUN/Creatinine Ratio 16 (6-26); Bilirubin,Total 0.3 mg/dL (0.3-1.0); Blood Urea Nitrogen 15 mg/dL (8-23); Calcium 8.4 mg/dL (8.6-10.3); Carbon Dioxide 22 mEq/L (23-29); Chloride 112 mEq/L (98-107); Globulin 2.1 g/dL (2.4-3.5); Glucose 92 mg/dL (70-105); Osmolality,Calculated 290 (280-300); Potassium 3.3 mEq/L (3.5-5.1); Sodium 140 mEq/L (136-145); Total Protein 4.9 g/dL (6.4-8.9); eGFR For African Americans > 60 (> 60); eGFR For Non-African Americans > 60 (> 60)
[2017-11-15] MEDS: amLODIPine 5 MG TABLET PO SCH (08:31)
[2017-11-15] MEDS: Metoprolol 100 MG TABLET PO SCH ×2 (08:33→20:37)
[2017-11-15] MEDS: Lactobacillus 1 EACH CAP.SPRINK PO SCH ×2 (08:33→20:37)
--- NOTE | 2017-11-15 10:00 | Internal Med Progress Note ---
Date of Encounter: 11/15/17 Time of Encounter: 11:00 - Assessment and plan (1) Pulmonary embolism Current Visit: Yes Status: Inactive Assessment and plan: Patient found to have pulmonary embolism on oral anticoagulation with Coumadin for atrial fibrillation Patient has had a history of GI bleeds in the past and now with acute anemia Patient has been on Pradaxa but discontinued due to GI bleed; patient has also been on Eliquis but discontinued due to side effects Will continue heparin drip Will consult vascular surgery for recommendations for IVC filter Qualifiers: Pulmonary embolism type: other Chronicity: acute Acute cor pulmonale presence: without acute cor pulmonale Qualified Code(s): I26.99 - Other pulmonary embolism without acute cor pulmonale (2) Acute on chronic respiratory failure with hypoxia Current Visit: Yes Status: Acute Assessment and plan: Patient on baseline home O2 supplementation (3) Anemia Current Visit: No Status: Chronic Assessment and plan: Patient's hemoglobin 10.9 this morning and was 13.2 on admission on 11/13/17 Patient does have a history of GI consult; occult stool ordered GI consulted and appreciate recommendations Given risks versus benefits with, will continue heparin drip for acute PE as above Qualifiers: Anemia type: unspecified type Qualified Code(s): D64.9 - Anemia, unspecified (4) Atrial fibrillation Current Visit: Yes Status: Chronic Assessment and plan: Rate controlled; patient currently on heparin drip was Qualifiers: Atrial fibrillation type: chronic Qualified Code(s): I48.2 - Chronic atrial fibrillation (5) CAD (coronary artery disease) Current Visit: Yes Status: Chronic Assessment and plan: Continue home medications Qualifiers: Coronary Disease-Associated Artery/Lesion type: [place] artery [place] vs. transplanted heart: [place] heart Associated angina: angina presence unspecified Qualified Code(s): I25.10 - Atherosclerotic heart disease of [place] coronary artery without angina pectoris (6) HTN (hypertension) Current Visit: Yes Status: Chronic Assessment and plan: Hx of chronic HTN. Monitor pt. and VS. Continue pts. Lopressor, candesartan, and Norvasc. Qualifiers: Hypertension type: essential hypertension Qualified Code(s): I10 - Essential (primary) hypertension (7) Diabetes Current Visit: Yes Status: Chronic Assessment and plan: Continue home medications Qualifiers: Diabetes mellitus type: type 1 Diabetes mellitus complication status: with unspecified complications Qualified Code(s): E10.8 - Type 1 diabetes mellitus with unspecified complications (8) HLD (hyperlipidemia) Current Visit: Yes Status: Chronic Assessment and plan: Continue home medications Qualifiers: Hyperlipidemia type: pure hypercholesterolemia Qualified Code(s): E78.00 - Pure hypercholesterolemia, unspecified; E78.0 - Pure hypercholesterolemia (9) DVT prophylaxis Current Visit: Yes Status: Acute Assessment and plan: Continue heparin drip - Time Spent With Patient Total time spent is greater than 50% in coordination of care (as documented) at patient's floor/unit and/or counseling patient: - Subjective Interval history: Patient with past medical history significant for atrial fibrillation on Coumadin who presented with shortness of breath and found to have pulmonary embolism Patient on baseline O2 requirements this morning. Patient has had a history of GI bleeds in the past and now with acute anemia Patient has been on Pradaxa but discontinued due to GI bleed; patient has also been on Eliquis but discontinued due to side effects Will consult vascular surgery for recommendations for IVC filter - Constitutional Vitals: Temp Pulse Resp BP Pulse Ox 98.2 F 103 18 119/63 100 11/15/17 07:02 11/15/17 07:02 11/15/17 09:23 11/15/17 07:02 11/15/17 09:23 General appearance: Present: cooperative, A&O X 3, pleasant, no acute distress, answers questions appropriately - Respiratory Respiratory exam: Present: CTAB. Absent: accessory muscle use, rales, rhonchi, wheezes - Cardiovascular Cardiovascular exam: Present: RRR, +S1, +S2. Absent: diastolic murmur, gallop, rubs, systolic murmur Internal Medicine: Result - Labs CBC & Chem 7: 11/15/17 04:31 11/15/17 04:31 Labs: Short CBC 11/15/17 Range/Units 04:31 WBC 5.0 (4.3-11.1) K/mcL Hgb 10.9 L (12.9-16.9) g/dL Hct 33.5 L (37.5-50.1) % Plt Count 158 (140-400) K/mcL Neutrophils # 2.4 (1.6-8.9) K/mcL BMP 11/15/17 04:31 Sodium 140 Potassium 3.3 L Chloride 112 H Carbon Dioxide 22 L BUN 15 Creatinine 0.91 Glucose 92 Calcium 8.4 L Liver Function 11/15/17 Range/Units 04:31 Total Bilirubin 0.3 (0.3-1.0) mg/dL AST 13 (13-39) Units/L ALT 8 (7-52) Units/L Alkaline Phosphatase 34 (34-104) Units/L Albumin 2.8 L (3.5-5.7) g/dL - Impressions Impressions Echocardiogram 11/13/17 22:04 Impressions: LVEF 50%. Indeterminate diastolic function. Atypical septal motion consistent with post-operative status. Basal septal hypertrophy. No LVOT obstruction. RV size is probably dilated. Function is mildly reduced by Doppler. Bi-atrial enlargement. Mild mitral regurgitation. No pulmonary hypertension by TR gradient. IVC not well visualized to estimate RVSP. Left Ventricular Wall Motion: Rest Echo Findings The basal inferior wall was hypokinetic. All other wall segments showed normal motion. Findings: Study Quality * Technically adequate exam. ECG Findings * Atrial fibrillation. Left Ventricle * LVEF 50%. * Indeterminate diastolic function. * Atypical septal motion consistent with post-operative status. * Normal LV chamber size. * Basal septal hypertrophy. No LVOT obstruction. Right Ventricle * RV size is probably dilated. Function is mildly reduced by Doppler. Left Atrium * Severely dilated left atrium. Right Atrium * Moderately dilated right atrium. Mitral Valve * Normal mitral valve structure. * No mitral stenosis. * Mild mitral annular calcification * Mild mitral regurgitation. Aortic Valve * No aortic regurgitation. * Trileaflet aortic valve. * No aortic stenosis. Tricuspid Valve * Tricuspid valve not well visualized. * Trace tricuspid regurgitation. Pulmonic Valve * Pulmonic valve is not well visualized. * No pulmonic stenosis. * No pulmonic regurgitation. Pulmonary Artery * Pulmonary artery not well visualized. Aorta * Normally sized aortic root. * Ascending aorta not well visualized. Pericardium * There is no pericardial effusion present. Interatrial Septum * No evidence of PFO by color Doppler. IVC * The IVC is not well evaluated. Consult Discharge Plan - Plan Referrals: Geraldo Das, [Primary Care Provider] -
[2017-11-16] MEDS: Cholecalciferol (D-3) 1,000 UNIT TABLET PO SCH ×2 (00:38→08:14)
[2017-11-16] MEDS: Insulin LISPRO 300 UNITS/3 ML VIAL SQ SCH ×5 (00:38→20:10)
[2017-11-16 04:19] LABS: Basophils % 0.8 %; Eosinophils # 0.6 K/mcL (0.0-0.6); Eosinophils % 11.7 %; Hematocrit 35.3 % (37.5-50.1); Hemoglobin 11.5 g/dL (12.9-16.9); Immature Granulocytes % 0.2 % (0-4); Lymphocytes # 1.2 K/mcL (0.6-4.6); Lymphocytes % 21.9 %; Mean Corpuscular HGB Conc 32.6 g/dL (31.6-35.5); Mean Corpuscular Hemoglobin 28.8 pg (28.0-33.3); Mean Corpuscular Volume 88.3 fL (83.0-100.0); Mean Platelet Volume 11.1 fL (9.4-12.4); Monocytes # 0.8 K/mcL (0.0-1.3); Monocytes % 15.3 %; Neutrophils # 2.7 K/mcL (1.6-8.9); Platelet Count 168 K/mcL (140-400); Red Cell Distribution Width 14.7 % (11.5-14.5); Segmented Neutrophils % 50.1 %
[2017-11-16 04:39] LABS: Alanine Aminotransferase 8 Units/L (7-52); Albumin 3.1 g/dL (3.5-5.7); Albumin/Globulin Ratio 1.4 (1.1-2.2); Alkaline Phosphatase 36 Units/L (34-104); Aspartate Amino Transferase 15 Units/L (13-39); BUN/Creatinine Ratio 17 (6-26); Bilirubin,Total 0.4 mg/dL (0.3-1.0); Blood Urea Nitrogen 16 mg/dL (8-23); Calcium 8.6 mg/dL (8.6-10.3); Carbon Dioxide 22 mEq/L (23-29); Chloride 111 mEq/L (98-107); Globulin 2.2 g/dL (2.4-3.5); Glucose 93 mg/dL (70-105); Osmolality,Calculated 289 (280-300); Sodium 139 mEq/L (136-145); Total Protein 5.3 g/dL (6.4-8.9); eGFR For African Americans > 60 (> 60); eGFR For Non-African Americans > 60 (> 60)
--- NOTE | 2017-11-16 08:03 | Internal Med Progress Note ---
Date of Encounter: 11/16/17 Time of Encounter: 11:00 - Assessment and plan (1) Pulmonary embolism Current Visit: Yes Status: Inactive Assessment and plan: Patient found to have pulmonary embolism on oral anticoagulation with Coumadin for atrial fibrillation Patient has had a history of GI bleeds in the past and now with acute anemia Patient has been on Pradaxa but discontinued due to GI bleed; patient has also been on Eliquis but discontinued due to side effects Will continue heparin drip Will consult vascular surgery for recommendations for IVC filter Qualifiers: Pulmonary embolism type: other Chronicity: acute Acute cor pulmonale presence: without acute cor pulmonale Qualified Code(s): I26.99 - Other pulmonary embolism without acute cor pulmonale (2) Acute on chronic respiratory failure with hypoxia Current Visit: Yes Status: Acute Assessment and plan: Patient on baseline home O2 supplementation (3) Anemia Current Visit: No Status: Chronic Assessment and plan: Patient's hemoglobin 11.5 this morning and was 13.2 on admission on 11/13/17 Patient does have a history of GI consult; occult stool ordered GI consulted with recommendations for EGD Given risks versus benefits with, will continue heparin drip for acute PE as above Qualifiers: Anemia type: unspecified type Qualified Code(s): D64.9 - Anemia, unspecified (4) Atrial fibrillation Current Visit: Yes Status: Chronic Assessment and plan: Rate controlled; patient currently on heparin drip was Qualifiers: Atrial fibrillation type: chronic Qualified Code(s): I48.2 - Chronic atrial fibrillation (5) CAD (coronary artery disease) Current Visit: Yes Status: Chronic Assessment and plan: Continue home medications Qualifiers: Coronary Disease-Associated Artery/Lesion type: [place] artery [place] vs. transplanted heart: [place] heart Associated angina: angina presence unspecified Qualified Code(s): I25.10 - Atherosclerotic heart disease of [place] coronary artery without angina pectoris (6) HTN (hypertension) Current Visit: Yes Status: Chronic Assessment and plan: Hx of chronic HTN. Monitor pt. and VS. Continue pts. Lopressor, candesartan, and Norvasc. Qualifiers: Hypertension type: essential hypertension Qualified Code(s): I10 - Essential (primary) hypertension (7) Diabetes Current Visit: Yes Status: Chronic Assessment and plan: Continue home medications Qualifiers: Diabetes mellitus type: type 1 Diabetes mellitus complication status: with unspecified complications Qualified Code(s): E10.8 - Type 1 diabetes mellitus with unspecified complications (8) HLD (hyperlipidemia) Current Visit: Yes Status: Chronic Assessment and plan: Continue home medications Qualifiers: Hyperlipidemia type: pure hypercholesterolemia Qualified Code(s): E78.00 - Pure hypercholesterolemia, unspecified; E78.0 - Pure hypercholesterolemia (9) DVT prophylaxis Current Visit: Yes Status: Acute Assessment and plan: Continue heparin drip - Time Spent With Patient Total time spent is greater than 50% in coordination of care (as documented) at patient's floor/unit and/or counseling patient: - Subjective Interval history: Patient with past medical history significant for atrial fibrillation on Coumadin who presented with shortness of breath and found to have pulmonary embolism Patient on baseline O2 requirements this morning. Patient has had a history of GI bleeds in the past and now with acute anemia; GI consulted with plans for EGD - Constitutional Vitals: Temp Pulse Resp BP Pulse Ox 97.6 F 71 23 121/64 97 11/16/17 07:25 11/16/17 07:25 11/16/17 07:25 11/16/17 07:25 11/16/17 07:25 General appearance: Present: cooperative, A&O X 3, pleasant, no acute distress, answers questions appropriately - Respiratory Respiratory exam: Present: CTAB. Absent: accessory muscle use, rales, rhonchi, wheezes - Cardiovascular Cardiovascular exam: Present: RRR, +S1, +S2. Absent: diastolic murmur, gallop, rubs, systolic murmur Internal Medicine: Result - Labs CBC & Chem 7: 11/16/17 04:04 11/16/17 04:04 Labs: Short CBC 11/16/17 Range/Units 04:04 WBC 5.3 (4.3-11.1) K/mcL Hgb 11.5 L (12.9-16.9) g/dL Hct 35.3 L (37.5-50.1) % Plt Count 168 (140-400) K/mcL Neutrophils # 2.7 (1.6-8.9) K/mcL BMP 11/16/17 04:04 Sodium 139 Potassium 4.0 Chloride 111 H Carbon Dioxide 22 L BUN 16 Creatinine 0.93 Glucose 93 Calcium 8.6 Liver Function 11/16/17 Range/Units 04:04 Total Bilirubin 0.4 (0.3-1.0) mg/dL AST 15 (13-39) Units/L ALT 8 (7-52) Units/L Alkaline Phosphatase 36 (34-104) Units/L Albumin 3.1 L (3.5-5.7) g/dL Consult Discharge Plan - Plan Referrals: Blair Briones CNP [Advanced Practice Nurse] - 11/26/17 9:00 am José Miguel Bradshaw MD [Partnered Physician] - (SENT WEB REQUEST ON 11-16-17 @ [phone])
[2017-11-16] MEDS: Lactobacillus 1 EACH CAP.SPRINK PO SCH ×2 (08:11→20:31)
[2017-11-16] MEDS: Metoprolol 100 MG TABLET PO SCH ×2 (08:12→20:31)
[2017-11-16] MEDS: amLODIPine 5 MG TABLET PO SCH (08:12)
--- NOTE | 2017-11-16 10:49 | Vascular/Endovasc Consult Note ---
Date of Encounter: 11/16/17 Time of Encounter: 09:00 Assessment and Plan (1) Pulmonary embolism Current Visit: Yes Status: Acute Vascular surgery consulted for placement of IVC filter. Discussed with patient at length indications, the nature of the procedure, possible complications and recovery. The patient is not interested in any procedures at this time given his advanced age and morbidities. Discussed with him that this is a very short minor procedure done with light sedation with very few intraoperative complications. He held fast that he was not interested. He was concerned that the filter at some point would need to be removed and the complications of halfway filter placement in case it was not removed timely. Discussed with him that the procedure to remove the filter, if done in less than one year from placement, was similar to insertion. He will discuss with daughter and get back to me. My number was left with the nurse in case the daughter had questions. As it sounds like he will not consent to the procedure, his NPO status can be lifted and his diet advanced. Will plan on procedure tomorrow should he change his mind. Qualifiers: Pulmonary embolism type: other Chronicity: unspecified Acute cor pulmonale presence: without acute cor pulmonale Qualified Code(s): I26.99 - Other pulmonary embolism without acute cor pulmonale - History of Present Illness Consult date: 11/16/17 Requesting physician: Shayne Crain Consult reason: IVC filter recommendations Chief complaint: shortness of breath History of present illness: Mr. Oconnell is a 82 year old male who was admitted to the hospital for acute pulmonary embolism. He is not a strong anticoagulation candidate given his history of GI bleed in addition to his current anemia. Vascular surgery was consulted for consideration of IVC placement. Past Med Surg Social Fam HX - Past Medical History Medical history: arthritis, atrial fibrillation, coronary artery disease, diabetes, GI bleed, hyperlipidemia, TIA, other Additional medical history: home oxygen Psychiatric history: no psych history - Past Surgical History Surgical History: coronary bypass (CABG) (Triple), other Additional surgical history: 3 way bypass. stomach sx - Social History Smoking Status: Former smoker Packs per day: 1 PPD - Reports quitting in 1969 Smokeless Tobacco Status: No Alcohol use: none Drug use: none - Family History Mother Race: Family Member Ethnicity: Non- Living Status: Age at : 90 Cause of : Old age Hx Family Cardiac Disorders: Yes Hx Family Neurologic Disorders: Yes (Alzheimer's disease) Father Adopted: No Race: Family Member Ethnicity: Non- Living Status: Age at : 62 Cause of : Cerebral hemorrhage Hx Family Cardiac Disorders: Yes (CVA) Hx Family Neurologic Disorders: No Sister Race: Family Member Ethnicity: Non- Living Status: Still Living Hx Family Cardiac Disorders: Yes (CAD) Hx Family GI Disorders: Yes (Crohn's disease) Hx Family Endocrine Disorder: Yes (DM) Medications and Allergies Candesartan Cilexetil [Atacand] 32 mg PO DAILY 03/03/15 [History] Metoclopramide [Reglan] 5 mg PO BID 03/03/15 [History] Metoprolol [Lopressor] 100 mg PO BID 03/03/15 [History] Pantoprazole Sodium 40 mg PO BID 03/03/15 [History] Amlodipine [Norvasc] 10 mg PO DAILY #30 tablet 03/06/15 [Rx] Lactobacillus [Culturelle] 1 each PO BID #10 cap.sprink 04/15/15 [Rx] Warfarin [Coumadin] 3 mg PO 1800 11/13/17 [History] 3 Allergy/AdvReac Type Severity Reaction Status Date / Time No Known Allergies Allergy Verified 03/03/15 15:41 All Systems Review: The remainder of the systems were reviewed and are negative - Cardiovascular Cardiovascular: as per HPI - Respiratory Respiratory: dyspnea (occ SOB) - Gastrointestinal Gastrointestinal: hematochezia (history of GI bleed) Exam Vital Signs, Last 4 Hours Temp Pulse Resp BP Pulse Ox 11/16/17 08:00 97.6 F 67 13 121/64 97 11/16/17 07:25 97.6 F 71 23 121/64 97 General: Present: Conversant, No Apparent Distress Cardiac: Present: Reg Rate and Rhythm Lungs: Present: Decreased breath sounds Neuro: Present: Alert and responsive, No focal deficits noted Abdomen: Present: Soft Vascular: Present: Normal capillary refill, Pulse, normal (palpable femoral pulses) Consult Discharge Plan - Plan Referrals: Blair Briones, SUPERVISOR [employer]NACE [Advanced Practice Nurse] - 11/26/17 9:00 am
--- NOTE | 2017-11-16 12:24 | Gastroenterology Consult Note ---
Date of Encounter: 11/16/17 Time of Encounter: 12:05 - Assessment and plan (1) Anemia Current Visit: No Status: Chronic Assessment and plan: Hgb on admission was 13.2, Hgb 10.9 yesterday, and today Hgb 11.5. Continue to monitor CBC and transfuse PRBC as needed. Consider EGD inpatient vs outpatient. Will discuss with Dr. Bradshaw. If plan for EGD, will need to hold heparin gtt 6 hours prior to scope. Qualifiers: Anemia type: unspecified type Qualified Code(s): D64.9 - Anemia, unspecified (2) Pulmonary embolism Current Visit: Yes Status: Acute Assessment and plan: Management per primary team. Qualifiers: Pulmonary embolism type: other Chronicity: unspecified Acute cor pulmonale presence: without acute cor pulmonale Qualified Code(s): I26.99 - Other pulmonary embolism without acute cor pulmonale (3) History of gastric ulcer Current Visit: Yes Status: Acute Assessment and plan: Patient educated regarding lifestyle modifications including: (1) avoidance of foods that may precipitate reflux (eg, coffee, alcohol, chocolate, fatty foods) . (2) avoidance of acidic foods that may precipitate heartburn (eg, citrus, carbonated drinks, spicy foods). (3) adoption of behaviors that may reduce esophageal acid exposure (see weight loss, smoking cessation, raising the head of the bed, and avoiding recumbency for 2-3 hours after meals). - Time Spent With Patient Total time spent is greater than 50% in coordination of care (as documented) at patient's floor/unit and/or counseling patient: GI History of Present Illness - Data of Consult Patient: known to practice within the last 3 years Consult date: 11/16/17 Requesting Physician: Shayne Crain - Consult Narrative Reason for consult: History of GI bleed, acute anemia History of present illness: Mr. Oconnell is a 82 year old male with PMHx of arthritis, Afib on Coumadin, DM , CAD, GI bleed, HLD, TIA, GERD, CABG who presented to the ED with complaints of worsening shortness of breath for 2-3 days prior to admission. Patient was found to have pulmonary embolism while on Coumadin, and was started on Heparin drip. He reports nausea and vomiting. He denies fever, chills, chest pain, abdominal pain, diarrhea, constipation, melena, or hematochezia. We were consulted to evaluate his anemia. Hgb on admission was 13.2 and today Hgb 11.5. States he has had several GIB, with his latest scopes at [facility] 06/2014 that were negative per the patient. He underwent upper and lower endoscopy 2 times, in [place] and at [facility] in [place]. He was found to have gastric ulcer and his Pradaxa was stopped. He has also had prior gastric ulcers several years ago requiring surgical intervention. He reports taking Protonix 40mg daily, Zantac BID, and Carafate BID. Procedures: Colonoscopy 06/2014 [facility]: Negative. EGD 06/2014 [facility]: Negative. NSAIDs: None Anticoagulation: Coumadin Past Med Surg Social Fam HX - Past Medical History Medical history: arthritis, atrial fibrillation, coronary artery disease, diabetes, GI bleed, hyperlipidemia, TIA, other Additional medical history: home oxygen Psychiatric history: no psych history - Past Surgical History Surgical History: coronary bypass (CABG) (Triple), other Additional surgical history: 3 way bypass. stomach sx - Social History Smoking Status: Former smoker Packs per day: 1 PPD - Reports quitting in 1969 Smokeless Tobacco Status: No Alcohol use: none Drug use: none - Family History Mother Race: Family Member Ethnicity: Non- Living Status: Age at : 90 Cause of : Old age Hx Family Cardiac Disorders: Yes Hx Family Neurologic Disorders: Yes (Alzheimer's disease) Father Adopted: No Race: Family Member Ethnicity: Non- Living Status: Age at : 62 Cause of : Cerebral hemorrhage Hx Family Cardiac Disorders: Yes (CVA) Hx Family Neurologic Disorders: No Sister Race: Family Member Ethnicity: Non- Living Status: Still Living Hx Family Cardiac Disorders: Yes (CAD) Hx Family GI Disorders: Yes (Crohn's disease) Hx Family Endocrine Disorder: Yes (DM) - Gastrointestinal Gastrointestinal: Present: as per HPI - Constitutional Constitutional: as per HPI - EENT Eyes: as per HPI Ears: Present: as per HPI Nose, mouth and throat: Present: as per HPI - Cardiovascular Cardiovascular ROS: Present: as per HPI - Respiratory Respiratory IM: Present: as per HPI - Genitourinary Genitourinary: Absent: change in color, Urinary frequency - Neurological ROS Neurological GI: Present: as per HPI - Hematologic/Lymphatic Hematologic/Lymphatic pediatric: Present: as per HPI - Musculoskeletal Musculoskeletal ROS GI: Present: as per HPI - Integumentary Integumentary GI: Present: as per HPI - Psychiatric ROS Psychiatric GI: Present: as per HPI - Endocrine Endocrine IM: Present: as per HPI - Constitutional Vitals: Temp Pulse Resp BP Pulse Ox 97.9 F 66 20 125/70 95 11/16/17 11:49 11/16/17 11:49 11/16/17 11:49 11/16/17 11:49 11/16/17 11:49 General appearance: Present: cooperative, A&O X 3, no acute distress, answers questions appropriately - Head Head exam: Present: atraumatic, normocephalic - Eye Eye exam: Present: normal appearance, sclera anicteric - ENT ENT exam: Present: mucous membranes moist - Neck Neck exam general surgery: Present: normal inspection, trachea midline - Respiratory Respiratory exam: Present: decreased breath sounds, CTAB. Absent: rales, rhonchi - Cardiovascular Cardiovascular exam: Present: RRR, +S1, +S2 - GI/Abdominal GI/Abdominal exam: Present: soft, no peritoneal signs. Absent: distended, firm , guarding, tenderness - Rectal Rectal exam: Present: deferred - Extremities Exam Extremities exam: Present: warm - Neurological Exam Neurological exam: Present: no focal deficits - Psychiatric Psychiatric exam: Present: normal affect, normal mood - Skin Skin exam: Present: dry, intact, normal color, warm Results - Labs CBC & Chem 7: 11/16/17 04:04 11/16/17 04:04 Labs: Last Result Calcium 8.6 mg/dL (8.6-10.3) 11/16/17 04:04 Triglycerides 59 mg/dL (< 150) 11/14/17 06:12 Entire Visit Hgb 11.5 g/dL (12.9-16.9) L 11/16/17 04:04 Hct 35.3 % (37.5-50.1) L 11/16/17 04:04 Total Bilirubin 0.4 mg/dL (0.3-1.0) 11/16/17 04:04 AST 15 Units/L (13-39) 11/16/17 04:04 ALT 8 Units/L (7-52) 11/16/17 04:04 Consult Discharge Plan - Plan Referrals: Blair Briones, DIVING JUDGE [Advanced Practice Nurse] - 11/26/17 9:00 am
--- NOTE | 2017-11-16 13:55 | Oncology Inp Progress Note ---
<Shannan Del Toro Beth - Last Filed: 11/16/17 18:19> Date of Encounter: 11/16/17 Time of Encounter: 10:00 (1) Pulmonary embolism Current Visit: Yes Status: Acute Assessment and plan: Acute PE admitted 11/13/2017. CT chest with contrast reveals segmental and subsegmental pulmonary artery emboli superior segment right lower lobe, along with nonspecific ground-glass densities within the right upper and right lower lobes likely as a result of postinfectious or inflammatory origin, COPD with left lower lobe bronchiectasis and distal airway impactions, indeterminate right upper lobe nodule 6 x 5 mm. Recommend future repeat chest imaging. History of atrial fibrillation was on Coumadin, with prior hx of episode of aphasia/TIA, no prior history of deep venous thrombosis/PE Discussed options for AC moving forward. Per patients daughter he has difficulty maintaining therapeutic INR on coumadin, he reports experiencing intolerable side effects with Eliquis (nausea, vomiting which quickly resolved after changing medication) and had issues with severe bleeding with Pradaxa ( issues prior to 2014, no bleeding since this time since changing to coumadin, EGD/colonoscopy negative 2014 per patient/report). Recommendation to transition to Xarelto from heparin gtt once GI determines direction for EGD. His hgb is 11.5 today, could be dilutional, he has had no s/s bleeding-GI consulted for consideration of updated endoscopy No recommendation for IVC filter at this time Patients daughter wishing to follow up with Dr. Dangelo, will arrange for follow up. Following resolution of PE symptoms, consideration of repeat chest imaging and stabilization while on AC-explained that cardiology will then take lead in future as AC prescribed snf for A-Fib. Please refer to Dr. Downing's attestation below for additional details. Qualifiers: Pulmonary embolism type: other Chronicity: unspecified Acute cor pulmonale presence: without acute cor pulmonale Qualified Code(s): I26.99 - Other pulmonary embolism without acute cor pulmonale Oncology: Subj Interval history: Mr. Oconnell is resting in bed. He denies pain or any s/s bleeding such as melena, hematochezia or hematemesis. He denies nausea, vomiting or diarrhea. His daughter is at bedside. He reports that his SOB has dramatically improved since admission, currently denies SOB or chest pain. - Constitutional Vitals: Vital Signs Temp Pulse Resp BP Pulse Ox 11/16/17 11:49 97.9 F 66 20 125/70 95 11/16/17 08:00 97.6 F 67 13 121/64 97 11/16/17 07:25 97.6 F 71 23 121/64 97 11/16/17 03:54 97.6 F 75 16 121/60 98 11/15/17 23:42 98 F 82 18 132/80 98 11/15/17 18:58 98.1 F 80 20 107/90 98 11/15/17 16:29 98.4 F 75 18 131/67 99 11/15/17 15:49 17 98 Intake and Output 11/15/17 11/16/17 11/16/17 23:59 07:59 15:59 Intake Total 390 / 390 360 / 360 Output Total 1050 / 1050 1100 / 1100 600 / 600 Balance -660 / -660 -1100 / -1100 -240 / -240 Intake: Oral 390 / 390 360 / 360 Output: Urine 1050 / 1050 500 / 500 Catheter 0 / 0 1100 / 1100 100 / 100 Urethral (Fountain) 0 / 0 0 / 0 Other: Meal Dinner Lunch Percent of Meal Consumed 100% 100% Stool Size Large Moderate Stool Consistency soft soft formed Stool Color Brown Brown Yellow Wilder Colored # Voids 1 # Bowel Movements 1 1 Weight 76.4 kg Blood Glucose* 103 102 106 Patient Weight 11/16/17 23:59 Weight 76.4 kg General appearance: cooperative, no acute distress, no febrile - Head Head exam: Present: atraumatic - ENT ENT exam: Present: mucous membranes moist - Respiratory Respiratory exam: Present: CTAB. Absent: respiratory distress - Cardiovascular Cardiovascular exam: Present: RRR, +S1, +S2 - GI/Abdominal GI/Abdominal exam: Present: normal bowel sounds, soft. Absent: guarding, rebound, tenderness - Extremities Exam Extremities exam: Present: normal inspection. Absent: calf tenderness - Neurological Exam Neurological exam: Present: alert, oriented X3, no focal deficits, strengths equal and symetr throughout - Psychiatric Psychiatric exam: Present: normal affect, normal mood - Skin Skin exam: Present: dry, intact, normal color, warm Oncology: Obj Data - Labs CBC & Chem 7: 11/16/17 04:04 11/16/17 04:04 Consult Discharge Plan - Plan Referrals: Blair Briones, TARIFF INSPECTOR [Advanced Practice Nurse] - 11/26/17 9:00 am José Miguel Bradshaw MD [Partnered Physician] - (SENT WEB REQUEST ON 11-16-17 @ 2219) Prescriptions: Rivaroxaban [Xarelto] 15 mg PO BID #42 tablet Rivaroxaban [Xarelto] 20 mg PO DAILY #30 tablet <Meggan Downing S - Last Filed: 11/17/17 13:44> Date of Encounter: 11/17/17 - Constitutional Vitals: Vital Signs Temp Pulse Resp BP Pulse Ox 11/16/17 17:00 96 11/16/17 16:10 98.5 F 66 21 111/57 97 11/16/17 11:49 97.9 F 66 20 125/70 95 11/16/17 08:00 97.6 F 67 13 121/64 97 11/16/17 07:25 97.6 F 71 23 121/64 97 11/16/17 03:54 97.6 F 75 16 121/60 98 11/15/17 23:42 98 F 82 18 132/80 98 11/15/17 18:58 98.1 F 80 20 107/90 98 Intake and Output 11/16/17 11/16/17 11/16/17 07:59 15:59 23:59 Intake Total 360 / 360 Output Total 1100 / 1100 600 / 600 Balance -1100 / -1100 -240 / -240 Intake: Oral 360 / 360 Output: Urine 500 / 500 Catheter 1100 / 1100 100 / 100 Urethral (Fountain) 0 / 0 Other: Meal Lunch Percent of Meal Consumed 100% Stool Size Moderate Stool Consistency soft formed Stool Color Brown Wilder Colored # Voids 1 # Bowel Movements 1 Weight 76.4 kg Blood Glucose* 102 106 123 Patient Weight 11/16/17 23:59 Weight 76.4 kg Oncology: Obj Data - Labs CBC & Chem 7: 11/17/17 03:49 11/17/17 03:49 Labs: Laboratory Results - last 24 hr 11/15/17 11/15/17 11/16/17 07:03 21:01 04:04 WBC 5.3 RBC 4.00 L Hgb 11.5 L Hct 35.3 L MCV 88.3 MCH 28.8 MCHC 32.6 RDW 14.7 H Plt Count 168 MPV 11.1 Immature Gran % 0.2 Seg Neutrophils % 50.1 Lymphocytes % 21.9 Monocytes % 15.3 Eosinophils % 11.7 Basophils % 0.8 Neutrophils # 2.7 Lymphocytes # 1.2 Monocytes # 0.8 Eosinophils # 0.6 Basophils # 0.0 APTT Sodium Potassium Chloride Carbon Dioxide BUN Creatinine Est GFR ( Amer) Est GFR (Non-Af Amer) BUN/Creatinine Ratio Glucose POC Glucose 93 103 H Calculated Osmolality Calcium Total Bilirubin AST ALT Alkaline Phosphatase Serum Total Protein Albumin Globulin Albumin/Globulin Ratio 11/16/17 11/16/17 11/16/17 04:04 04:04 07:27 WBC RBC Hgb Hct MCV MCH MCHC RDW Plt Count MPV Immature Gran % Seg Neutrophils % Lymphocytes % Monocytes % Eosinophils % Basophils % Neutrophils # Lymphocytes # Monocytes # Eosinophils # Basophils # APTT 62.3 H Sodium 139 Potassium 4.0 Chloride 111 H Carbon Dioxide 22 L BUN 16 Creatinine 0.93 Est GFR ( Amer) > 60 Est GFR (Non-Af Amer) > 60 BUN/Creatinine Ratio 17 Glucose 93 POC Glucose 102 H Calculated Osmolality 289 Calcium 8.6 Total Bilirubin 0.4 AST 15 ALT 8 Alkaline Phosphatase 36 Serum Total Protein 5.3 L Albumin 3.1 L Globulin 2.2 L Albumin/Globulin Ratio 1.4 11/16/17 11:53 WBC RBC Hgb Hct MCV MCH MCHC RDW Plt Count MPV Immature Gran % Seg Neutrophils % Lymphocytes % Monocytes % Eosinophils % Basophils % Neutrophils # Lymphocytes # Monocytes # Eosinophils # Basophils # APTT Sodium Potassium Chloride Carbon Dioxide BUN Creatinine Est GFR ( Amer) Est GFR (Non-Af Amer) BUN/Creatinine Ratio Glucose POC Glucose 106 H Calculated Osmolality Calcium Total Bilirubin AST ALT Alkaline Phosphatase Serum Total Protein Albumin Globulin Albumin/Globulin Ratio - Attending Attestation I examined this patient and my medical decision-making was reviewed with the Advanced Practice Nurse. I agree with the documented findings, disposition and treatment plan as described except to the extent set forth below. 1. Acute right lower lobe segmental and subsegmental pulmonary embolism. This happened on therapeutic Coumadin INR 2 Agree with transitioning to Xarelto on discharge area and creatinine normal at 0.93 No clinical indication for filter placement He has previous GI bleeding on Pradaxa prior to 2014. Also had some allergic reaction to Eliquis a newly intense nausea 2. Biatrial enlargement. Echocardiogram showed ejection fraction 50%. Status post CABG. His size reduced ejection fraction could be related to underlying coronary artery disease. He has PE is segmental and I do not expect right heart decompensation from that 3. Mild anemia hemoglobin 11.5. Hemoglobin and admission was around 13.5. This could be more from diffusion. Medical gastroenterology consult noted
[2017-11-16] MEDS ORDERED: Mag Hydrox/Al Hydrox/Simeth 30 ML UDC PO PRN (16:21)
[2017-11-16] MEDS ORDERED: SODIUM CHLORIDE/NAHCO3/KCL/PEG 4,000 ML SOLN.RECON PO ONE (17:00)
[2017-11-17] MEDS: Heparin 25,000 UNIT/500 ML D5W 25,000 UNIT/500 ML BAG IVC SCH ×2 (00:45→01:25)
[2017-11-17 04:06] LABS: Basophils # 0.1 K/mcL (0.0-0.2); Eosinophils # 0.5 K/mcL (0.0-0.6); Eosinophils % 9.6 %; Hematocrit 37.9 % (37.5-50.1); Hemoglobin 12.2 g/dL (12.9-16.9); Immature Granulocytes % 0.4 % (0-4); Lymphocytes # 1.3 K/mcL (0.6-4.6); Lymphocytes % 26.1 %; Mean Corpuscular HGB Conc 32.2 g/dL (31.6-35.5); Mean Corpuscular Volume 90.2 fL (83.0-100.0); Mean Platelet Volume 11.4 fL (9.4-12.4); Monocytes # 0.8 K/mcL (0.0-1.3); Monocytes % 14.7 %; Neutrophils # 2.5 K/mcL (1.6-8.9); Platelet Count 163 K/mcL (140-400); Red Cell Distribution Width 14.6 % (11.5-14.5); Segmented Neutrophils % 48.2 %
[2017-11-17] MEDS ORDERED: *HR* Heparin 5,000 UNIT/ML VIAL IVP PRN ×2 (04:30)
[2017-11-17] MEDS ORDERED: *HR* Heparin 5,000 UNIT/ML VIAL ONE (04:39)
[2017-11-17 04:54] LABS: Alanine Aminotransferase 13 Units/L (7-52); Albumin 3.2 g/dL (3.5-5.7); Albumin/Globulin Ratio 1.2 (1.1-2.2); Alkaline Phosphatase 39 Units/L (34-104); Aspartate Amino Transferase 21 Units/L (13-39); BUN/Creatinine Ratio 18 (6-26); Bilirubin,Total 0.3 mg/dL (0.3-1.0); Blood Urea Nitrogen 16 mg/dL (8-23); Calcium 8.5 mg/dL (8.6-10.3); Carbon Dioxide 22 mEq/L (23-29); Chloride 111 mEq/L (98-107); Globulin 2.6 g/dL (2.4-3.5); Glucose 99 mg/dL (70-105); Osmolality,Calculated 287 (280-300); Sodium 138 mEq/L (136-145); Total Protein 5.8 g/dL (6.4-8.9); eGFR For African Americans > 60 (> 60); eGFR For Non-African Americans > 60 (> 60)
[2017-11-17] MEDS: Pantoprazole 40 MG VIAL IVP SCH ×2 (06:15→17:53)
[2017-11-17] MEDS: Lactobacillus 1 EACH CAP.SPRINK PO SCH ×2 (07:20→21:00)
[2017-11-17] MEDS: Metoprolol 100 MG TABLET PO SCH ×2 (07:20→21:00)
[2017-11-17] MEDS: amLODIPine 5 MG TABLET PO SCH (07:20)
[2017-11-17] MEDS: Cholecalciferol (D-3) 1,000 UNIT TABLET PO SCH (07:20)
[2017-11-17] MEDS: Insulin LISPRO 300 UNITS/3 ML VIAL SQ SCH ×4 (07:21→20:54)
--- NOTE | 2017-11-17 10:51 | Anesthesia Evaluation PreOp ---
Date of Encounter: 11/17/17 Time of Encounter: 10:48 - Past History Planned Operation: EGD/Colonoscopy Cardiac History: ID, HTN, Hyperlipidemia, Arrhythmia (AFib), Cardiac Surgery ( CABG 2001) Pulmonary History: Former smoker (quit 1969), Other (Hx PE, Home O2) [facility] History: TIA Other Medical History: Diabetes Type II Anesthesia History: No Prior Anesthetic Complications, Past Anesthesia ( coronary bypass (CABG) (Triple), other stomach sx) Alcohol Use: none Drug use: none Medications and Allergies Candesartan Cilexetil [Atacand] 32 mg PO DAILY 03/03/15 [History] Metoclopramide [Reglan] 5 mg PO BID 03/03/15 [History] Metoprolol [Lopressor] 100 mg PO BID 03/03/15 [History] Pantoprazole Sodium 40 mg PO BID 03/03/15 [History] Amlodipine [Norvasc] 10 mg PO DAILY #30 tablet 03/06/15 [Rx] Lactobacillus [Culturelle] 1 each PO BID #10 cap.sprink 04/15/15 [Rx] Warfarin [Coumadin] 3 mg PO 1800 11/13/17 [History] Rivaroxaban [Xarelto] 15 mg PO BID #42 tablet 11/17/17 [Rx] Rivaroxaban [Xarelto] 20 mg PO DAILY #30 tablet 11/17/17 [Rx] 3 Allergy/AdvReac Type Severity Reaction Status Date / Time No Known Allergies Allergy Verified 03/03/15 15:41 - Meds/Allergy Pre-op Review Medications Reviewed: Yes Allergies Reviewed: Yes Beta Blockers on Current Med List: Yes If Beta Blockers taken, Date/Time (Last Dose taken): 07:20 11/17/2017 Anesthesia Results - Labs 11/17/17 03:49 11/17/17 03:49 Echocardiogram Name: Jose Carlos Oconnell Date of Study: 11/14/2017 EV/EV echocardiogram Impressions: LVEF 50%. Indeterminate diastolic function. Atypical septal motion consistent with post-operative status. Basal septal hypertrophy. No LVOT obstruction. RV size is probably dilated. Function is mildly reduced by Doppler. Bi-atrial enlargement. Mild mitral regurgitation. No pulmonary hypertension by TR gradient. IVC not well visualized to estimate RVSP. - Imaging EKG: report reviewed (Afib Rate 98) Anesthesia Exam Vital Signs/O2 Sat, Most Current Temp Pulse Resp BP Pulse Ox 98.9 F 70 16 127/67 96 11/17/17 10:50 11/17/17 10:50 11/17/17 10:50 11/17/17 10:50 11/17/17 10:50 NPO (# of Hours): > 8 Hrs Pain Scale: 0 Pain Scale Used: Numeric (1 - 10) - HEENT Pupil (Motor): Pupils equal, EOMI Mallampati: II Teeth: Poor dentition Oral Opening: Greater than 3 - [facility] LOC: Oriented [facility] Motor: Normal RUE, Normal LUE, Normal RLE, Normal LLE, Normal Face [facility] Sensory: Normal: RUE, LUE, RLE, LLE, Face - Cardiac Rhythm: Regular Murmur: None JVD: No Carotid Bruit: No - Pulmonary Breath Sounds: bilateral Clear Respiratory Effort: Symmetrical Anesthesia Assess/Plan ASA Score: 3 Modified [place] Scale for Level of Consciousness: Cooperative, oriented, and tranquil Anesthetic Plan: MAC Autologous Blood: Yes Monitoring Plan: Standard Monitors Recovery Plan: Other
[2017-11-17] MEDS ORDERED: Propofol 500 MG/50 ML INFUS..BTL ONE (12:13)
[2017-11-17] MEDS ORDERED: Lidocaine -MPF 2% 2 ML VIAL ONE (12:52)
[2017-11-17] MEDS ORDERED: *HR* PHENYLEPHRINE 1,000 MCG/10 ML SYRINGE IVP ONE (12:55)
[2017-11-17] MEDS: *HR* Rivaroxaban 15 MG TABLET PO SCH (17:53)
--- NOTE | 2017-11-17 18:08 | Internal Med Progress Note ---
Date of Encounter: 11/17/17 Time of Encounter: 10:15 - Assessment and plan (1) Acute on chronic respiratory failure with hypoxia Current Visit: Yes Status: Acute Assessment and plan: Improved. Currently at baseline oxygen requirements at 2 L/m via nasal cannula. Acute episode due to pulmonary embolism. (2) Anemia Current Visit: Yes Status: Chronic Assessment and plan: Hemoglobin stable, at around 11-12. Stool occult blood positive. GI has been consulted, patient underwent EGD and colonoscopy today. EGD showed chronic gastritis and reflux esophagitis, no bleeding. Colonoscopy showed diverticulosis and nonbleeding internal hemorrhoids. Qualifiers: Anemia type: unspecified type Qualified Code(s): D64.9 - Anemia, unspecified (3) Pulmonary embolism Current Visit: Yes Status: Acute Assessment and plan: CT of the chest showed segmental and subsegmental pulmonary artery emboli in superior segment right lower lobe. Patient has been on anticoagulation with Coumadin. Hematology has been on board , recommend to continue IV heparin drip for now, plan for discharge on Xarelto, which will be started from [facility]. Prescription for [place] check given to lining caser. Continue supplemental oxygen and supportive care. Qualifiers: Pulmonary embolism type: other Chronicity: acute Acute cor pulmonale presence: without acute cor pulmonale Qualified Code(s): I26.99 - Other pulmonary embolism without acute cor pulmonale (4) Atrial fibrillation Current Visit: Yes Status: Chronic Assessment and plan: rate-controlled; continue beta jose and Telemetry monitoring; continue anticoagulation with Xarelto; Qualifiers: Atrial fibrillation type: chronic Qualified Code(s): I48.2 - Chronic atrial fibrillation (5) CAD (coronary artery disease) Current Visit: Yes Status: Chronic Qualifiers: Coronary Disease-Associated Artery/Lesion type: [place] artery [place] vs. transplanted heart: [place] heart Associated angina: without angina Qualified Code(s): I25.10 - Atherosclerotic heart disease of [place] coronary artery without angina pectoris (6) Diabetes Current Visit: Yes Status: Chronic Assessment and plan: Blood sugars tightly controlled. Continue close monitoring. Diabetic diet. Qualifiers: Diabetes mellitus type: type 2 Diabetes mellitus complication status: with unspecified complications Qualified Code(s): E11.8 - Type 2 diabetes mellitus with unspecified complications (7) HLD (hyperlipidemia) Current Visit: Yes Status: Chronic Qualifiers: Hyperlipidemia type: unspecified Qualified Code(s): E78.5 - Hyperlipidemia , unspecified (8) HTN (hypertension) Current Visit: Yes Status: Chronic Qualifiers: Hypertension type: essential hypertension Qualified Code(s): I10 - Essential (primary) hypertension - Time Spent With Patient Total time spent is greater than 50% in coordination of care (as documented) at patient's floor/unit and/or counseling patient: - Subjective Interval history: Feels well; no chest or abdominal pain, cough, fever/chills; improved shortness of breath; no leg swelling; awaiting EGD and colonoscopy today; - Constitutional Vitals: Temp Pulse Resp BP Pulse Ox 98.5 F 70 18 129/65 99 11/17/17 16:03 11/17/17 16:03 11/17/17 16:03 11/17/17 16:03 11/17/17 16:03 General appearance: Present: cooperative, A&O X 3, no acute distress, answers questions appropriately - Respiratory Respiratory exam: Present: CTAB. Absent: accessory muscle use, rales, rhonchi, wheezes - Cardiovascular Cardiovascular exam: Present: irregular rhythm, +S1, +S2. Absent: diastolic murmur, gallop, rubs, systolic murmur - GI/Abdominal GI/Abdominal exam: Present: normal bowel sounds, soft, no peritoneal signs. Absent: distended, tenderness - Extremities Exam Extremities exam: Present: full ROM, warm, radial pulses palpable and symmetrical. Absent: calf tenderness, cyanotic, pedal edema - Neurological Exam Neurological exam: Present: CN II-XII intact, oriented X3, no focal deficits. Absent: pronater drift, facial droop, speech deficit Internal Medicine: Result - Labs CBC & Chem 7: 11/17/17 03:49 11/17/17 03:49 Labs: Short CBC 11/17/17 Range/Units 03:49 WBC 5.1 (4.3-11.1) K/mcL Hgb 12.2 L (12.9-16.9) g/dL Hct 37.9 (37.5-50.1) % Plt Count 163 (140-400) K/mcL Neutrophils # 2.5 (1.6-8.9) K/mcL BMP 11/17/17 03:49 Sodium 138 Potassium 4.0 Chloride 111 H Carbon Dioxide 22 L BUN 16 Creatinine 0.87 Glucose 99 Calcium 8.5 L Liver Function 11/17/17 Range/Units 03:49 Total Bilirubin 0.3 (0.3-1.0) mg/dL AST 21 (13-39) Units/L ALT 13 (7-52) Units/L Alkaline Phosphatase 39 (34-104) Units/L Albumin 3.2 L (3.5-5.7) g/dL Consult Discharge Plan - Plan Referrals: Blair Briones CNP [Advanced Practice Nurse] - 11/26/17 9:00 am José Miguel Bradshaw MD [Partnered Physician] - (SENT WEB REQUEST ON 11-16-17 @ [phone]) Prescriptions: Rivaroxaban [Xarelto] 15 mg PO BID #42 tablet Rivaroxaban [Xarelto] 20 mg PO DAILY #30 tablet
[2017-11-18 05:51] LABS: Basophils % 0.8 %; Eosinophils # 0.3 K/mcL (0.0-0.6); Eosinophils % 6.4 %; Hematocrit 38.1 % (37.5-50.1); Hemoglobin 12.2 g/dL (12.9-16.9); Immature Granulocytes % 0.2 % (0-4); Lymphocytes % 18.8 %; Mean Corpuscular Hemoglobin 28.6 pg (28.0-33.3); Mean Corpuscular Volume 89.2 fL (83.0-100.0); Mean Platelet Volume 11.1 fL (9.4-12.4); Monocytes # 0.7 K/mcL (0.0-1.3); Monocytes % 12.2 %; Neutrophils # 3.3 K/mcL (1.6-8.9); Platelet Count 166 K/mcL (140-400); Red Blood Count 4.27 M/mcL (4.19-5.50); Red Cell Distribution Width 14.4 % (11.5-14.5); Segmented Neutrophils % 61.6 %
[2017-11-18 06:09] LABS: Alanine Aminotransferase 13 Units/L (7-52); Albumin 3.1 g/dL (3.5-5.7); Albumin/Globulin Ratio 1.3 (1.1-2.2); Alkaline Phosphatase 39 Units/L (34-104); Aspartate Amino Transferase 19 Units/L (13-39); BUN/Creatinine Ratio 10 (6-26); Bilirubin,Total 0.4 mg/dL (0.3-1.0); Blood Urea Nitrogen 10 mg/dL (8-23); Calcium 8.8 mg/dL (8.6-10.3); Carbon Dioxide 24 mEq/L (23-29); Chloride 110 mEq/L (98-107); Globulin 2.3 g/dL (2.4-3.5); Glucose 77 mg/dL (70-105); Osmolality,Calculated 290 (280-300); Potassium 3.8 mEq/L (3.5-5.1); Sodium 141 mEq/L (136-145); Total Protein 5.4 g/dL (6.4-8.9); eGFR For African Americans > 60 (> 60); eGFR For Non-African Americans > 60 (> 60)
[2017-11-18] MEDS: Pantoprazole 40 MG VIAL IVP SCH (06:15)
[2017-11-18] MEDS: Metoprolol 100 MG TABLET PO SCH (07:46)
[2017-11-18] MEDS: amLODIPine 5 MG TABLET PO SCH (07:46)
[2017-11-18] MEDS: Lactobacillus 1 EACH CAP.SPRINK PO SCH (07:46)
[2017-11-18] MEDS: *HR* Rivaroxaban 15 MG TABLET PO SCH (07:47)
[2017-11-18] MEDS: Cholecalciferol (D-3) 1,000 UNIT TABLET PO SCH (07:47)
[2017-11-18] MEDS: Insulin LISPRO 300 UNITS/3 ML VIAL SQ SCH (07:47)
[2017-11-18 08:04] VITALS: BP 121/70
--- NOTE | 2017-11-18 11:07 | Discharge Summary ---
- NOTES TO OUTPATIENT PROVIDER Notes to Outpatient Provider: Right-sided PE, anemia is stable; anticoagulation has been changed to Xarelto from Coumadin; EGD and colonoscopy showed no active bleeding. Orders not resulted at time of discharge: Pending orders 11/18/17 09:25 Venous Doppler [EV venous imaging LE BI] Routine Date of Encounter: 11/18/17 Time of Encounter: 11:05 - Discharge Diagnosis (1) Acute on chronic respiratory failure with hypoxia Priority: Primary Status: Acute (2) Anemia Priority: Secondary Status: Chronic Qualifiers: Anemia type: unspecified type Qualified Code(s): D64.9 - Anemia, unspecified (3) Pulmonary embolism Priority: Primary Status: Acute Qualifiers: Pulmonary embolism type: other Chronicity: acute Acute cor pulmonale presence: without acute cor pulmonale Qualified Code(s): I26.99 - Other pulmonary embolism without acute cor pulmonale (4) Atrial fibrillation Priority: Secondary Status: Chronic Qualifiers: Atrial fibrillation type: chronic Qualified Code(s): I48.2 - Chronic atrial fibrillation (5) CAD (coronary artery disease) Priority: Secondary Status: Chronic Qualifiers: Coronary Disease-Associated Artery/Lesion type: [place] artery [place] vs. transplanted heart: [place] heart Associated angina: without angina Qualified Code(s): I25.10 - Atherosclerotic heart disease of [place] coronary artery without angina pectoris (6) Diabetes Priority: Secondary Status: Chronic Qualifiers: Diabetes mellitus type: type 2 Diabetes mellitus shelter insulin use: without intermodal customer service use Diabetes mellitus complication status: with unspecified complications Qualified Code(s): E11.8 - Type 2 diabetes mellitus with unspecified complications (7) HLD (hyperlipidemia) Priority: Secondary Status: Chronic Qualifiers: Hyperlipidemia type: unspecified Qualified Code(s): E78.5 - Hyperlipidemia , unspecified (8) HTN (hypertension) Priority: Secondary Status: Chronic Qualifiers: Hypertension type: essential hypertension Qualified Code(s): I10 - Essential (primary) hypertension Hospital course: Mr. Oconnell is a 82 year old male with the above medical problems, admitted with worsening shortness of breath. He was noted to have right-sided PE on CTA chest, was noted to be on Coumadin at home, started on IV Heparin drip. His symptoms improved slowly. He was also noted to have anemia, Hb remained stable; stool occult blood was positive. GI was consulted and he underwent EGD and colonoscopy. EGD showed chronic gastritis and reflux esophagitis, no bleeding. Colonoscopy showed diverticulosis and nonbleeding internal hemorrhoids. Hematology was consulted due to VTE while on Coumadin, recommend to change to Xarelto at discharge; joyner check was completed and patient tolerated this well in the hospital. Venous Doppler was ordered just to get a baseline for the patient, however he refused and wanted to be discharged early today. Patient is otherwise asymptomatic and medically stable for discharge; plan of care also d/w his daughter at bedside. Discharge discussed with: patient, family, nurse, functional consultant - Time Spent with Patient Total time spent providing and/or coordinating discharge services: Greater than 30 minutes (45 min) - Discharge Medications Prescriptions: Rivaroxaban [Xarelto] 15 mg PO BID #42 tablet Rivaroxaban [Xarelto] 20 mg PO DAILY #30 tablet Home Medications: Candesartan Cilexetil [Atacand] 32 mg PO DAILY 03/03/15 [History] Metoclopramide [Reglan] 5 mg PO BID 03/03/15 [History] Metoprolol [Lopressor] 100 mg PO BID 03/03/15 [History] Pantoprazole Sodium 40 mg PO BID 03/03/15 [History] Amlodipine [Norvasc] 10 mg PO DAILY #30 tablet 03/06/15 [Rx] Lactobacillus [Culturelle] 1 each PO BID #10 cap.sprink 04/15/15 [Rx] Rivaroxaban [Xarelto] 15 mg PO BID #42 tablet 11/17/17 [Rx] Rivaroxaban [Xarelto] 20 mg PO DAILY #30 tablet 11/17/17 [Rx] Allergies/Adverse Reactions: 3 Allergy/AdvReac Type Severity Reaction Status Date / Time No Known Allergies Allergy Verified 03/03/15 15:41 Date of admission: 11/13/17 16:38 Primary care physician: Geraldo Das DO Consults: 11/13/17 17:27 Consult to Staffing Analyst [CONS] Routine Reason for SW Consult: Pt wants home health on discharge has home [place] home o2 11/13/17 20:32 Consult to Oncology Hematology [CONS] Routine Consulting Provider: Bob Pinzon Reason for Consult: Patient transferred from [facility] to [facility] for SOB/Dyspnea. CT shows segmental and subsegmental pulmonary artery emboli superior segment right lower lobe. Pt is on Coumadin. Coumadin held and pt. now on heparin drip. Call Completed: Yes 11/13/17 22:04 Consult to Cardiology [CONS] Routine Comment: Consulting Provider: Cardiology Shauna Reason for Consult: Patient is 82 yo w/extensive cardiac hx of atrial fibrillation, CAD, HLD, HTN, and TIA presented to [facility] ED w/SOB and chest pressure. CT of the chest shows segmental and subsegmental pulmonary artery emboli superior segment right lower lobe. Pt. takes Coumadin daily. Last Echocardiogram 12/2016. Will repeat. Oncology Hematology consulted. Call Completed: No 11/15/17 16:28 Consult to Vascular Surgery [CONS] Routine Consulting Provider: Vascular Surgery Shauna Reason for Consult: PE on Coumadin with history of GI bleeds; IVC filter EVAL Call Completed: No 11/15/17 16:29 Consult to Gastroenterology [CONS] Routine Consulting Provider: Gastroenterology Shauna Reason for Consult: History of GI bleeds with acute anemia Call Completed: No Discharging clinician: Kavita Loya Anticipated date of discharge: 11/18/17 - Constitutional Vitals: Temp Pulse Resp BP Pulse Ox 97.6 F 68 68 121/70 97 11/18/17 07:00 11/18/17 07:00 11/18/17 07:00 11/18/17 07:00 11/18/17 07:00 General appearance: Present: cooperative, A&O X 3, no acute distress, answers questions appropriately - Respiratory Respiratory exam: Present: CTAB. Absent: accessory muscle use, rales, rhonchi, wheezes - Patient Status Disposition: Home, Self-Care Condition: Good Functional capacity at discharge: independent ambulation Overall status at discharge: patient is progressing back to baseline - Discharge Instructions Instructions: Atrial Fibrillation (DC), Pulmonary Embolism (DC), Acute Respiratory Distress Syndrome (DC), Diabetes Mellitus Type 2 in Adults (DC), Chronic Hypertension (DC), Anemia (GEN) Follow Up With: Blair Briones CNP [Advanced Practice Nurse] - 11/26/17 9:00 am José Miguel Bradshaw MD [Partnered Physician] - (SENT WEB REQUEST ON 11-16-17 @ [phone]) Bob Pinzon MD [Partnered Physician] - 12/07/17 1:30 pm - Diet and Activity Activity: resume usual activities as tolerated, wear oxygen at all times Diet: diabetic diet, low fat, low cholesterol, low salt diet
[2017-12-08] MEDS ORDERED: *HR* Rivaroxaban 10 MG TABLET PO SCH (17:00)
== END 2017-11-18 12:06 | disposition home or self-care (01) | DRG 175 ==
LOC: 2NNU 16:38 → SUATTDRO 16:38
PROVIDERS: ADMIT Nurse Practitioner Family; ATTEND Internal Medicine

== ENCOUNTER 2020-02-06 16:31 | Inpatient (IN) ==
[2020-02-06] MEDS ORDERED: 0.9 % Sodium Chloride 1,000 ML IVC ONE (16:54)
[2020-02-06 17:41] LABS: Hematocrit 25.6 % (37.5-50.1); Hemoglobin 7.4 g/dL (12.9-16.9)
[2020-02-06 17:58] LABS: INR 1.2
[2020-02-06 18:00] LABS: Activated Partial Thrombo Time 34.9 Seconds (26.0-36.0)
[2020-02-06] MEDS ORDERED: Naloxone 0.4 MG/ML INJ IVP PRN (18:26)
[2020-02-06] MEDS ORDERED: Ondansetron 4 MG/2 ML VIAL IVP PRN (18:26)
[2020-02-06 19:27] LABS: Bilirubin,Urine Negative (Negative); Blood,Urine Negative (Negative); Clarity,Urine Clear (Clear); Color,Urine Light-Yellow (Yellow); Glucose,Urine (UA) Normal (Normal); Ketones,Urine Negative (Negative); Leukocyte Esterase,Urine Negative (Negative); Nitrite,Urine Negative (Negative); Protein,Urine Negative (Neg-Trace); Specific Gravity,Urine 1.012 (1.010-1.025); Urobilinogen,Urine Normal (Normal)
[2020-02-06] MEDS: cefTRIAXone 1,000 MG in Water for inj. (sterile) 10 ML IVP SCH (22:33)
[2020-02-06] MEDS: Pantoprazole 40 MG VIAL IVP SCH (22:34)
[2020-02-07 03:36] LABS: Basophils % 0.5 %; Eosinophils # 0.3 K/mcL (0.0-0.6); Eosinophils % 4.2 %; Hematocrit 26.1 % (37.5-50.1); Immature Granulocytes % 0.3 % (0-4); Lymphocytes # 0.9 K/mcL (0.6-4.6); Lymphocytes % 14.9 %; Mean Corpuscular HGB Conc 30.7 g/dL (31.6-35.5); Mean Corpuscular Hemoglobin 29.5 pg (28.0-33.3); Mean Corpuscular Volume 96.3 fL (83.0-100.0); Monocytes # 0.9 K/mcL (0.0-1.3); Monocytes % 14.4 %; Neutrophils # 4.1 K/mcL (1.6-8.9); Platelet Count 180 K/mcL (140-400); Red Blood Count 2.71 M/mcL (4.19-5.50); Red Cell Distribution Width 18.8 % (11.5-14.5); Segmented Neutrophils % 65.7 %; White Blood Count 6.2 K/mcL (4.3-11.1)
[2020-02-07 03:59] LABS: Alanine Aminotransferase 9 Units/L (7-52); Albumin 2.3 g/dL (3.5-5.7); Albumin/Globulin Ratio 1.3 (1.1-2.2); Alkaline Phosphatase 38 Units/L (34-104); Aspartate Amino Transferase 13 Units/L (13-39); BUN/Creatinine Ratio 31 (6-26); Bilirubin,Direct 0.2 mg/dL (0.0-0.2); Bilirubin,Indirect 0.3 mg/dL (0.0-1.0); Bilirubin,Total 0.5 mg/dL (0.3-1.0); Blood Urea Nitrogen 35 mg/dL (8-23); Calcium 7.5 mg/dL (8.6-10.3); Carbon Dioxide 22 mEq/L (23-29); Chloride 111 mEq/L (98-107); Globulin 1.8 g/dL (2.4-3.5); Glucose 75 mg/dL (70-105); Osmolality,Calculated 299 (280-300); Potassium 3.4 mEq/L (3.5-5.1); Sodium 141 mEq/L (136-145); Total Protein 4.1 g/dL (6.4-8.9); eGFR For African Americans > 60 (> 60); eGFR For Non-African Americans > 60 (> 60)
[2020-02-07] MEDS: Pantoprazole 40 MG VIAL IVP SCH ×2 (06:07→17:17)
[2020-02-07] MEDS: cefTRIAXone 1,000 MG in Water for inj. (sterile) 10 ML IVP SCH (08:43)
[2020-02-07] MEDS: AUSTEDO 12MG PO SCH ×2 (08:51→14:01)
[2020-02-07] MEDS ORDERED: 0.9 % Sodium Chloride 250 ML ONE (12:12)
[2020-02-07] MEDS ORDERED: *HR* LORazepam 0.5 MG TABLET PO PRN (13:44)
[2020-02-07] MEDS ORDERED: traZODone 50 MG TABLET PO PRN (13:44)
[2020-02-07] MEDS ORDERED: DEUTETRABENAZINE 12 MG PO SCH (14:00)
[2020-02-07] MEDS ORDERED: Simethicone 40 MG/0.6 ML MLS IR ONE (15:32)
[2020-02-07] MEDS: Sucralfate 1 GM TABLET PO SCH ×2 (15:45→22:18)
[2020-02-07 16:27] LABS: % Iron Saturation 31 % (20-55); Iron 75 mcg/dL (65-175); Transferrin 175 mg/dL (203-362)
[2020-02-07 16:33] LABS: Ferritin 51 ng/mL (20-250)
[2020-02-07] MEDS ORDERED: SODIUM CHLORIDE/NAHCO3/KCL/PEG 4,000 ML SOLN.RECON PO ONE (17:00)
[2020-02-07 17:08] LABS: Hematocrit 35.2 % (37.5-50.1)
[2020-02-07 17:12] LABS: Hemoglobin 10.7 g/dL (12.9-16.9)
[2020-02-07] MEDS ORDERED: Furosemide 20 MG TABLET PO SCH (21:00)
[2020-02-07] MEDS: Melatonin 3 MG TABLET PO SCH (22:18)
[2020-02-08] MEDS: Pantoprazole 40 MG VIAL IVP SCH ×2 (05:32→17:46)
[2020-02-08 07:53] LABS: Hematocrit 30.7 % (37.5-50.1); Hemoglobin 9.3 g/dL (12.9-16.9); Mean Corpuscular HGB Conc 30.3 g/dL (31.6-35.5); Mean Corpuscular Hemoglobin 30.6 pg (28.0-33.3); Mean Platelet Volume 11.7 fL (9.4-12.4); Platelet Count 182 K/mcL (140-400); Red Blood Count 3.04 M/mcL (4.19-5.50); Red Cell Distribution Width 19.2 % (11.5-14.5); White Blood Count 4.7 K/mcL (4.3-11.1)
[2020-02-08] MEDS ORDERED: DEUTETRABENAZINE 24 MG PO SCH (08:00)
[2020-02-08] MEDS: Sucralfate 1 GM TABLET PO SCH ×4 (08:00→22:01)
[2020-02-08] MEDS: AUSTEDO 12MG PO SCH ×2 (08:00→14:58)
[2020-02-08 08:11] LABS: BUN/Creatinine Ratio 21 (6-26); Blood Urea Nitrogen 22 mg/dL (8-23); Calcium 8.1 mg/dL (8.6-10.3); Carbon Dioxide 20 mEq/L (23-29); Chloride 115 mEq/L (98-107); Glucose 66 mg/dL (70-105); Osmolality,Calculated 300 (280-300); Potassium 3.5 mEq/L (3.5-5.1); Sodium 144 mEq/L (136-145); eGFR For African Americans > 60 (> 60); eGFR For Non-African Americans > 60 (> 60)
[2020-02-08] MEDS ORDERED: amLODIPine 5 MG TABLET PO SCH (09:00)
[2020-02-08] MEDS: 0.9 % Sodium Chloride 500 ML IVC SCH (14:25)
[2020-02-08] MEDS: Melatonin 3 MG TABLET PO SCH (20:35)
[2020-02-09 01:50] LABS: Hematocrit 30.4 % (37.5-50.1); Hemoglobin 9.3 g/dL (12.9-16.9); Mean Corpuscular HGB Conc 30.6 g/dL (31.6-35.5); Mean Corpuscular Hemoglobin 30.4 pg (28.0-33.3); Mean Corpuscular Volume 99.3 fL (83.0-100.0); Mean Platelet Volume 11.9 fL (9.4-12.4); Platelet Count 175 K/mcL (140-400); Red Blood Count 3.06 M/mcL (4.19-5.50); Red Cell Distribution Width 18.9 % (11.5-14.5); White Blood Count 6.7 K/mcL (4.3-11.1)
[2020-02-09 02:08] LABS: BUN/Creatinine Ratio 15 (6-26); Blood Urea Nitrogen 14 mg/dL (8-23); Calcium 7.6 mg/dL (8.6-10.3); Carbon Dioxide 22 mEq/L (23-29); Chloride 115 mEq/L (98-107); Glucose 75 mg/dL (70-105); Osmolality,Calculated 293 (280-300); Potassium 3.3 mEq/L (3.5-5.1); Sodium 142 mEq/L (136-145); eGFR For African Americans > 60 (> 60); eGFR For Non-African Americans > 60 (> 60)
[2020-02-09] MEDS: Pantoprazole 40 MG VIAL IVP SCH (06:12)
[2020-02-09 06:56] VITALS: BP 133/59
[2020-02-09] MEDS: 0.9 % Sodium Chloride 500 ML IVC SCH (08:59)
[2020-02-09] MEDS: Sucralfate 1 GM TABLET PO SCH ×2 (09:03→11:33)
[2020-02-09] MEDS: AUSTEDO 12MG PO SCH (09:04)
== END 2020-02-09 13:29 | disposition home health service (06) | DRG 377 ==
LOC: 3ANU 16:31 → EMEROOARM 16:31 → SUATTDRO 19:30 → 3ANU 20:55 → SUATTDRO 02-07 21:14
PROVIDERS: ADMIT Pharmacist; ATTEND Internal Medicine

== ENCOUNTER 2020-02-12 18:27 | Inpatient (IN) ==
[2020-02-12 19:25] LABS: BUN/Creatinine Ratio 12 (6-26); Blood Urea Nitrogen 16 mg/dL (8-23); Calcium 7.9 mg/dL (8.6-10.3); Carbon Dioxide 20 mEq/L (23-29); Chloride 109 mEq/L (98-107); Glucose 101 mg/dL (70-105); Osmolality,Calculated 293 (280-300); Potassium 3.7 mEq/L (3.5-5.1); Sodium 141 mEq/L (136-145); eGFR For African Americans > 60 (> 60); eGFR For Non-African Americans 52 (> 60)
[2020-02-12 19:32] LABS: Troponin I 0.06 ng/mL (< 0.04)
[2020-02-12] MEDS ORDERED: Naloxone 0.4 MG/ML INJ IVP PRN (20:37)
[2020-02-13 01:02] LABS: Basophils % 0.3 %; Hemoglobin 9.4 g/dL (12.9-16.9); Mean Corpuscular Volume 98.1 fL (83.0-100.0)
[2020-02-13 01:04] LABS: Eosinophils # 0.5 K/mcL (0.0-0.6); Hematocrit 30.8 % (37.5-50.1); Immature Granulocytes % 0.3 % (0-4); Immature Platelets 6.4 % (1.1-6.1); Lymphocytes # 1.2 K/mcL (0.6-4.6); Lymphocytes % 12.5 %; Mean Corpuscular HGB Conc 30.5 g/dL (31.6-35.5); Mean Corpuscular Hemoglobin 29.9 pg (28.0-33.3); Mean Platelet Volume 12.4 fL (9.4-12.4); Monocytes # 0.9 K/mcL (0.0-1.3); Platelet Count 144 K/mcL (140-400); Red Blood Count 3.14 M/mcL (4.19-5.50); Red Cell Distribution Width 18.3 % (11.5-14.5); Segmented Neutrophils % 72.9 %; White Blood Count 9.6 K/mcL (4.3-11.1)
[2020-02-13 01:08] LABS: INR 1.1; Prothrombin Time 12.1 Seconds (9.4-12.1)
[2020-02-13] MEDS ORDERED: Acetaminophen 325 MG TABLET PO PRN (01:08)
[2020-02-13] MEDS ORDERED: Dextrose Gel 15 GM/37.5 ML TUBE PO PRN ×2 (01:08)
[2020-02-13] MEDS ORDERED: D5% in Water 1,000 ML IVC PRN (01:08)
[2020-02-13] MEDS ORDERED: *HR* Dextrose 50 % in Water (Vial) 50 ML VIAL IVP PRN (01:08)
[2020-02-13 01:10] LABS: Activated Partial Thrombo Time 28.8 Seconds (26.0-36.0)
[2020-02-13 01:21] LABS: BUN/Creatinine Ratio 13 (6-26); Blood Urea Nitrogen 15 mg/dL (8-23); Calcium 7.3 mg/dL (8.6-10.3); Carbon Dioxide 22 mEq/L (23-29); Chloride 110 mEq/L (98-107); Glucose 81 mg/dL (70-105); Osmolality,Calculated 292 (280-300); Potassium 3.4 mEq/L (3.5-5.1); Sodium 141 mEq/L (136-145); eGFR For African Americans > 60 (> 60); eGFR For Non-African Americans > 60 (> 60)
[2020-02-13] MEDS ORDERED: Melatonin 3 MG TABLET PO PRN (02:31)
[2020-02-13] MEDS: Insulin LISPRO 300 UNITS/3 ML VIAL SQ SCH ×4 (06:00→23:35)
[2020-02-13] MEDS: Furosemide 40 MG/4 ML VIAL IVP SCH (08:32)
[2020-02-13] MEDS ORDERED: GuaiFENesin Liq 200 MG/10 ML UDC PO PRN (11:16)
[2020-02-13] MEDS ORDERED: *HR* LORazepam 0.5 MG TABLET PO PRN (11:16)
[2020-02-13] MEDS: Sucralfate 1 GM TABLET PO SCH ×3 (12:03→20:37)
[2020-02-13] MEDS: Famotidine 20 MG TABLET PO SCH (12:03)
[2020-02-13] MEDS ORDERED: Regadenoson 0.4 MG/5 ML SYRINGE IVP ONE (12:49)
[2020-02-13] MEDS ORDERED: Isovue-370 500 ML BOTTLE IVP ONE (14:33)
[2020-02-13] MEDS ORDERED: amLODIPine 5 MG TABLET PO SCH (21:00)
[2020-02-14 04:48] LABS: Basophils # 0.1 K/mcL (0.0-0.2); Basophils % 0.8 %; Eosinophils # 0.6 K/mcL (0.0-0.6); Eosinophils % 7.6 %; Hematocrit 33.1 % (37.5-50.1); Immature Granulocytes % 0.3 % (0-4); Lymphocytes # 1.3 K/mcL (0.6-4.6); Lymphocytes % 17.2 %; Mean Corpuscular HGB Conc 30.2 g/dL (31.6-35.5); Mean Corpuscular Hemoglobin 30.7 pg (28.0-33.3); Mean Corpuscular Volume 101.5 fL (83.0-100.0); Mean Platelet Volume 11.1 fL (9.4-12.4); Monocytes % 12.9 %; Neutrophils # 4.5 K/mcL (1.6-8.9); Platelet Count 173 K/mcL (140-400); Red Blood Count 3.26 M/mcL (4.19-5.50); Red Cell Distribution Width 18.3 % (11.5-14.5); Segmented Neutrophils % 61.2 %; White Blood Count 7.4 K/mcL (4.3-11.1)
[2020-02-14 05:13] LABS: BUN/Creatinine Ratio 12 (6-26); Blood Urea Nitrogen 12 mg/dL (8-23); Calcium 7.8 mg/dL (8.6-10.3); Carbon Dioxide 19 mEq/L (23-29); Chloride 115 mEq/L (98-107); Glucose 103 mg/dL (70-105); Magnesium 1.9 mg/dL (1.6-2.6); Osmolality,Calculated 294 (280-300); Sodium 142 mEq/L (136-145); eGFR For African Americans > 60 (> 60); eGFR For Non-African Americans > 60 (> 60)
[2020-02-14] MEDS: Sucralfate 1 GM TABLET PO SCH (05:54)
[2020-02-14] MEDS: Insulin LISPRO 300 UNITS/3 ML VIAL SQ SCH (05:58)
[2020-02-14] MEDS ORDERED: Levothyroxine 25 MCG TABLET PO SCH (06:30)
[2020-02-14 08:31] VITALS: BP 103/71
[2020-02-14] MEDS ORDERED: Cholecalciferol (D-3) 1,000 UNIT (25MCG) TABLET PO SCH (09:00)
[2020-02-14] MEDS ORDERED: Ascorbic Acid 500 MG TABLET PO SCH (09:00)
[2020-02-14] MEDS ORDERED: amLODIPine 5 MG TABLET PO SCH (09:00)
[2020-02-14] MEDS: Furosemide 40 MG/4 ML VIAL IVP SCH (09:26)
[2020-02-14] MEDS: Famotidine 20 MG TABLET PO SCH (09:27)
== END 2020-02-14 13:32 | disposition home or self-care (01) | DRG 291 ==
LOC: 3BNU 18:27 → EMEROOARM 18:27 → SUATTDRO 20:26 → 3BNU 21:32
PROVIDERS: ADMIT Family Medicine; ATTEND Internal Medicine